=== PATIENT | female | born 1930 | race Caucasian/White ===

== ENCOUNTER → 2016-10-21 | Outpatient (CLI) | payer MEDICARE, OTHER ==
[2016-10-21 09:27] LABS: BASO # 0.1 x10^3/uL (0.0-0.2); BASO % 2 % (0-3); EOS # 0.2 x10^3/uL (0.0-0.7); EOS % 3 % (0-3); HEMOGLOBIN 11.2 g/dL (12.0-15.5); LYMPH % 15 % (24-48); MEAN CORPUSCULAR HEMOGLOBIN 34 pg (25-35); MEAN CORPUSCULAR HGB CONC 33 g/dL (31-37); MEAN CORPUSCULAR VOLUME 102 fL (79-100); MONO # 0.8 x10^3/uL (0.0-1.1); MONO % 12 % (0-9); NEUT # 4.3 x10^3uL (1.8-7.7); NEUT % 67 % (31-73); PLATELET COUNT 256 x10^3/uL (140-400); RED BLOOD COUNT 3.34 x10^6/uL (3.50-5.40); RED CELL DISTRIBUTION WIDTH 19.1 % (11.5-14.5); WHITE BLOOD COUNT 6.4 x10^3/uL (4.0-11.0)
== END | disposition home or self-care (01) ==
LOC: SPEC 09:08
PROVIDERS: ATTEND Internal Medicine Rheumatology
DX: I10 Essential (primary) hypertension (principal)
CPT/HCPCS: 36415; 85027

== ENCOUNTER → 2016-11-10 | Outpatient (CLI) | payer MEDICARE, OTHER ==
[2016-11-10 10:34] LABS: BASO % 1 % (0-3); EOS # 0.3 x10^3/uL (0.0-0.7); EOS % 5 % (0-3); HEMOGLOBIN 10.9 g/dL (12.0-15.5); LYMPH # 0.6 x10^3/uL (1.0-4.8); LYMPH % 9 % (24-48); MEAN CORPUSCULAR HEMOGLOBIN 34 pg (25-35); MEAN CORPUSCULAR HGB CONC 33 g/dL (31-37); MEAN CORPUSCULAR VOLUME 102 fL (79-100); MONO # 0.9 x10^3/uL (0.0-1.1); MONO % 13 % (0-9); NEUT # 4.9 x10^3uL (1.8-7.7); NEUT % 73 % (31-73); PLATELET COUNT 181 x10^3/uL (140-400); RED BLOOD COUNT 3.24 x10^6/uL (3.50-5.40); RED CELL DISTRIBUTION WIDTH 18.5 % (11.5-14.5); WHITE BLOOD COUNT 6.8 x10^3/uL (4.0-11.0)
[2016-11-10 10:36] LABS: BASO # 0.1 x10^3/uL (0.0-0.2)
[2016-11-10 10:44] LABS: ALBUMIN 3.6 g/dL (3.4-5.0); DIRECT BILIRUBIN 0.1 mg/dL (0.0-0.2); GFR 52.8; TOTAL BILIRUBIN 0.4 mg/dL (0.2-1.0); TOTAL PROTEIN 6.1 g/dL (6.4-8.2)
== END | disposition home or self-care (01) ==
LOC: SPEC 10:24
PROVIDERS: ATTEND Internal Medicine
DX: M19.90 Unspecified osteoarthritis, unspecified site (principal)
CPT/HCPCS: 36415; 80076; 82565; 85027

== ENCOUNTER 2017-03-09 11:08 | Inpatient (IN) | payer MEDICARE, OTHER ==
[~2017-03-09] VITALS: Ht 158.8 cm; Wt 51.7 kg
--- NOTE | 2017-03-09 12:23 | EKG ---
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
[2017-03-09 12:25] LABS: BASO # 0.1 x10^3/uL (0.0-0.2); BASO % 1 % (0-3); EOS # 0.1 x10^3/uL (0.0-0.7); EOS % 1 % (0-3); HEMATOCRIT 24.7 % (36.0-47.0); HEMOGLOBIN 8.3 g/dL (12.0-15.5); LYMPH # 0.7 x10^3/uL (1.0-4.8); LYMPH % 6 % (24-48); MEAN CORPUSCULAR HEMOGLOBIN 33 pg (25-35); MEAN CORPUSCULAR HGB CONC 34 g/dL (31-37); MEAN CORPUSCULAR VOLUME 97 fL (79-100); MONO # 0.7 x10^3/uL (0.0-1.1); MONO % 7 % (0-9); NEUT # 9.2 x10^3uL (1.8-7.7); NEUT % 86 % (31-73); PLATELET COUNT 260 x10^3/uL (140-400); RED BLOOD COUNT 2.56 x10^6/uL (3.50-5.40); RED CELL DISTRIBUTION WIDTH 17.1 % (11.5-14.5); WHITE BLOOD COUNT 10.7 x10^3/uL (4.0-11.0)
[2017-03-09] MEDS ORDERED: IV NORMAL SALINE 1,000ML 1,000 ML IV ONE (12:30)
--- NOTE | 2017-03-09 12:32 | RAD ---
AP portable chest radiograph 03/09/2017 Clinical History: Hypotension. An AP portable erect digital radiograph of the chest was obtained. Comparison study is dated 08/13/2015. The patient is status post right shoulder joint replacement. The cardiac silhouette is normal in size. The thoracic aorta is tortuous. Atherosclerotic calcification of the thoracic aorta is seen. No acute pulmonary infiltrate is noted. No pneumothorax or pleural effusion is seen. Degenerative changes are seen involving the thoracic spine and the left shoulder. Impression: No acute abnormality is seen.
[2017-03-09 12:34] LABS: ALBUMIN 2.2 g/dL (3.4-5.0); CALCIUM 8.1 mg/dL (8.5-10.1); CREATININE 0.8 mg/dL (0.6-1.0); DIRECT BILIRUBIN 0.1 mg/dL (0.0-0.2); GFR 68.3; POTASSIUM 4.7 mmol/L (3.5-5.1); TOTAL BILIRUBIN 0.3 mg/dL (0.2-1.0); TOTAL PROTEIN 5.6 g/dL (6.4-8.2)
[2017-03-09 13:48] LABS: BACTERIA,URINE MOD /HPF (0-FEW); BILIRUBIN,URINE NEG (NEG); CLARITY,URINE TURBID; COLOR,URINE YELLOW; GLUCOSE,URINE NEG (NEG); NITRITE,URINE POS (NEG); SQUAMOUS EPITHELIAL CELL,UR FEW /LPF; UROBILINOGEN,URINE 0.2 mg/dL (0.2 mg/dL); WBC,URINE >40 /HPF (0-4)
[2017-03-09] MEDS ORDERED: MORPHINE SULFATE 2 MG/ML DISP.SYRIN. IV PRN (14:00)
[2017-03-09] MEDS ORDERED: ONDANSETRON PF 4 MG/2 ML VIAL. IV PRN (14:00)
--- NOTE | 2017-03-09 14:30 | PHYS DOC ---
Past History Past Medical History: Arthritis, Asthma, Constipation, GERD, High Cholesterol, Hypertension Past Surgical History: No Surgical History Alcohol Use: None Drug Use: None Adult General Chief Complaint Chief Complaint: HYPOTENSION HPI HPI 46-year-old female presenting to the emergency department after being at a local care facility where they had a difficult time getting a blood pressure. EMS was called and the patient was brought in to us for further evaluation. This started today. She reports recently taking her medications for blood pressure. She denies any pain anywhere and reports feeling generally fatigued and malaised. Location generalized. Duration constant. No alleviating or exacerbating factors present. Review of systems is negative for chest pain shortness of breath fevers chills cough polyuria dysuria abdominal pain. All other review of systems is negative unless otherwise noted in history of present illness. ED course: 86-year-old female presenting to the emergency department with low blood pressure. Upon arrival the patient's blood pressure was soft and 100 systolic. We initiated IV fluid administration obtain an EKG sent blood work and obtained a chest x-ray. Chest x-ray unremarkable. EKG obtained. EKG shows sinus rhythm with regular rate. Normal intervals. Leftward axis. ST segments are congruent. Not suggestive of ACS. Reviewed by myself. Patient responded IV fluid administration. Urinalysis positive for urinary tract infection. Also the patient's hemoglobin is dropped 2 points. We will send fecal occult testing though she does not remember having dark stools and denies any blood in her stool. I discussed the case with Dr. Cuba for admission. The patient was admitted for further evaluation workup and care. Review of Systems Review of Systems SEE ABOVE Current Medications Current Medications Current Medications Medications (Trade) Dose Ordered Sig/Santo Start Time Stop Time Status Last Admin Dose Admin Levofloxacin/ Dextrose 100 ml @ 100 mls/hr 1X ONCE 03/09/17 14:10 03/09/17 15:09 Morphine Sulfate (Morphine 2mg Syringe) 2 mg PRN Q2HR PRN 03/09/17 14:00 03/10/17 13:59 Ondansetron HCl (Zofran) 4 mg PRN Q4HRS PRN 03/09/17 14:00 03/10/17 13:59 Sodium Chloride 1,000 ml @ 1,000 mls/hr 1X ONCE 03/09/17 12:30 03/09/17 13:29 DC Allergies Allergies Allergies Coded Allergies Type Severity Reaction Last Updated Verified Penicillins Allergy Unknown 03/09/17 Yes Sulfa (Sulfonamide Antibiotics) Allergy Unknown 03/09/17 Yes amoxicillin Allergy Unknown 03/09/17 Yes aspirin Allergy Unknown 03/09/17 Yes chocolate flavor Allergy Unknown 03/09/17 Yes clavulanic acid Allergy Unknown 03/09/17 Yes mushroom Allergy Unknown 03/09/17 Yes strawberry Allergy Unknown 03/09/17 Yes Uncoded Allergies Type Severity Reaction Last Updated Verified other Allergy Unknown 03/09/17 Physical Exam Physical Exam Constitutional: Well developed, well nourished, no acute distress, non-toxic appearance. [] HENT: Normocephalic, atraumatic, bilateral external ears normal, oropharynx moist, no oral exudates, nose normal. [] Eyes: PERRLA, EOMI, conjunctiva normal, no discharge. [] Neck: Normal range of motion, no tenderness, supple, no stridor. [] Cardiovascular:Heart rate regular rhythm, no murmur [] Lungs & Thorax: Bilateral breath sounds clear to auscultation [] Abdomen: Soft nontender abdomen without rebound tenderness or guarding present. Negative McBurneys point. Negative Rodrigues sign. No ecchymosis present. Skin: Warm, dry, no erythema, no rash. [] Back: No tenderness, no CVA tenderness. [] Extremities: No tenderness, no cyanosis, no clubbing, ROM intact, no edema. [] Neurologic: Mental status: Awake oriented and alert x3 Cranial nerves: Extraocular movements intact, eyebrows shantelle bilaterally smile symmetric, uvula elevation, shoulder shrug intact, tongue protrusion normal DTRs: 2+ Sensation: equal and normal in all extremities Strength: 5/5 in upper and lower extremities bilaterally Psychologic: Affect normal, judgement normal, mood normal. [] Current Patient Data Vital Signs Vital Signs Date Time Temp Pulse Resp B/P (MAP) Pulse Ox O2 Delivery O2 Flow Rate FiO2 03/09/17 12:19 64 20 113/54 (73) 95 Room Air 03/09/17 11:08 98.1 Lab Results Laboratory Tests Test 03/09/17 12:05 03/09/17 13:20 White Blood Count 10.7 x10^3/uL (4.0-11.0) Red Blood Count 2.56 x10^6/uL (3.50-5.40) L Hemoglobin 8.3 g/dL (12.0-15.5) L Hematocrit 24.7 % (36.0-47.0) L Mean Corpuscular Volume 97 fL (79-100) Mean Corpuscular Hemoglobin 33 pg (25-35) Mean Corpuscular Hemoglobin Concent 34 g/dL (31-37) Red Cell Distribution Width 17.1 % (11.5-14.5) H Platelet Count 260 x10^3/uL (140-400) Neutrophils (%) (Auto) 86 % (31-73) H Lymphocytes (%) (Auto) 6 % (24-48) L Monocytes (%) (Auto) 7 % (0-9) Eosinophils (%) (Auto) 1 % (0-3) Basophils (%) (Auto) 1 % (0-3) Neutrophils # (Auto) 9.2 x10^3uL (1.8-7.7) H Lymphocytes # (Auto) 0.7 x10^3/uL (1.0-4.8) L Monocytes # (Auto) 0.7 x10^3/uL (0.0-1.1) Eosinophils # (Auto) 0.1 x10^3/uL (0.0-0.7) Basophils # (Auto) 0.1 x10^3/uL (0.0-0.2) Sodium Level 131 mmol/L (136-145) L Potassium Level 4.7 mmol/L (3.5-5.1) Chloride Level 100 mmol/L (98-107) Carbon Dioxide Level 26 mmol/L (21-32) Anion Gap 5 (6-14) L Blood Urea Nitrogen 26 mg/dL (7-20) H Creatinine 0.8 mg/dL (0.6-1.0) Estimated GFR (Cockcroft-Gault) 68.3 Glucose Level 99 mg/dL (70-99) Lactic Acid Level 1.8 mmol/L (0.4-2.0) Calcium Level 8.1 mg/dL (8.5-10.1) L Total Bilirubin 0.3 mg/dL (0.2-1.0) Direct Bilirubin 0.1 mg/dL (0.0-0.2) Aspartate Amino Transferase (AST) 21 U/L (15-37) Alanine Aminotransferase (ALT) 16 U/L (14-59) Alkaline Phosphatase 102 U/L (46-116) Troponin I Quantitative < 0.017 ng/mL (0-0.055) Total Protein 5.6 g/dL (6.4-8.2) L Albumin 2.2 g/dL (3.4-5.0) L Lipase 228 U/L (73-393) Urine Collection Type Void Urine Color Yellow Urine Clarity Turbid Urine pH 6.5 Urine Specific [place] 1.010 Urine Protein Neg (NEG-TRACE) Urine Glucose (UA) Neg mg/dL (NEG) Urine Ketones (Stick) Neg mg/dL (NEG) Urine Blood Small (NEG) Urine Nitrite Pos (NEG) Urine Bilirubin Neg (NEG) Urine Urobilinogen Dipstick 0.2 mg/dL (0.2 mg/dL) Urine Leukocyte Esterase Large (NEG) Urine RBC 11-20 /HPF (0-2) Urine WBC >40 /HPF (0-4) Urine Squamous Epithelial Cells Few /LPF Urine Transitional Epithelial Cells Occ /LPF Urine Bacteria Mod /HPF (0-FEW) EKG EKG [] Radiology/Procedures Radiology/Procedures [] Course & Med Decision Making Course & Med Decision Making Pertinent Labs and Imaging studies reviewed. (See chart for details) [] Dragon Disclaimer Dragon Disclaimer This chart was dictated in whole or in part using Voice Recognition software in a busy, high-work load, and often noisy Emergency Department environment. It may contain unintended and wholly unrecognized errors or omissions. Departure Departure: Impression: Primary Impression: Hypotension Additional Impressions: Urinary tract infection Anemia Uremia Dehydration Disposition: 09 ADMITTED INPATIENT Admitting Physician: Marcie Cuba Condition: STABLE Referrals: CYNTHIA POND MD (PCP) Problem Qualifiers DAJUAN RODRIGUES MD Mar 09, 2017 14:30
[2017-03-09 16:06] VITALS: BP 128/65
[2017-03-09 18:02] VITALS: BP 118/74
[2017-03-09] MEDS ORDERED: LATA2.5D3 EACHEYE (18:26)
[2017-03-09] MEDS: IV NORMAL SALINE 1,000ML 1,000 ML IV SCH (19:00)
[2017-03-09] MEDS: PANTOPRAZOLE 40 MG TABLET. PO SCH (19:30)
[2017-03-09] MEDS ORDERED: CARV25TA2 PO (19:54)
[2017-03-09] MEDS ORDERED: PRED2.5T PO (19:54)
[2017-03-09] MEDS ORDERED: DEXT15DR5 EACHEYE (19:54)
[2017-03-09] MEDS ORDERED: CETI10TA22 PO (19:54)
[2017-03-09] MEDS ORDERED: ETAN50DI2 SQ (19:54)
[2017-03-09] MEDS ORDERED: CARB25DR OP (19:54)
[2017-03-09] MEDS ORDERED: METH2.5T PO (19:54)
[2017-03-09] MEDS ORDERED: GABA600T2 PO (19:54)
[2017-03-09] MEDS ORDERED: VALS160T3 PO (19:54)
[2017-03-09] MEDS ORDERED: FOLI1TAB16 PO (19:54)
[2017-03-09] MEDS ORDERED: CICL6.1H4 IH (19:54)
[2017-03-09] MEDS ORDERED: ASPI81TA50 PO (19:54)
[2017-03-09] MEDS ORDERED: ACET325T9 PO (19:54)
[2017-03-09] MEDS ORDERED: FLUT16SP21 NS (19:54)
[2017-03-09] MEDS ORDERED: CYCL1DRO EACHEYE (19:54)
[2017-03-09] MEDS ORDERED: CARB15DR58 OT (19:54)
[2017-03-09] MEDS ORDERED: POLY17PO5 PO (19:54)
[2017-03-09] MEDS ORDERED: CELE100C PO (19:54)
[2017-03-09] MEDS ORDERED: ALBU8.5H8 INH (19:54)
[2017-03-09] MEDS ORDERED: IPRA12.9 IH (19:54)
[2017-03-09] MEDS ORDERED: VIT1CAPS17 PO (19:54)
[2017-03-09] MEDS ORDERED: BRIM5DRO3 EACHEYE (19:54)
[2017-03-09] MEDS ORDERED: ACETAMINOPHEN 325 MG TABLET PO PRN (20:45)
[2017-03-09] MEDS ORDERED: ENOXAPARIN 30 MG/0.3 ML DISP.SYRIN. SQ SCH (20:45)
[2017-03-09] MEDS ORDERED: CARBOXYMETHYLCELLULOSE OP SCH (20:45)
[2017-03-09] MEDS ORDERED: HYPROMELLOSE OP SCH (20:45)
[2017-03-09] MEDS ORDERED: ALBUTEROL SULFATE 8GM INHALER. INH PRN (20:45)
[2017-03-09] MEDS ORDERED: FLUTICASONE 50MCG/NASAL SPRAY 16GM BOTTLE. NS PRN (20:45)
[2017-03-09] MEDS: LATANOPROST 0.005% OPHTH SOLUTION 2.5ML BOTTLE. OU SCH (21:00)
[2017-03-09] MEDS ORDERED: METHOTREXATE SODIUM 2.5 MG TABLET PO SCH (21:00)
[2017-03-09] MEDS: BRIMONIDINE 0.2% OPHTH SOLUTION 5ML BOTTLE. OU SCH (21:00)
[2017-03-09] MEDS ORDERED: IPRATROPIUM BROMIDE 17MCG/PUFF 12.9GM INHALER. IH SCH (21:00)
[2017-03-09] MEDS: NON FORMULARY ITEM (Ciclesonide (Alvesco) 6.1 GM) IH SCH (21:00)
[2017-03-09] MEDS: cycloSPORINE 0.05% OPTH 1 DROP DROPERETTE OU SCH (21:00)
[2017-03-09] MEDS: CETIRIZINE HCL 10 MG TABLET PO SCH (21:21)
[2017-03-09] MEDS: GABAPENTIN 300 MG CAPSULE. PO SCH (21:21)
[2017-03-09] MEDS: CELECOXIB 100 MG CAPSULE PO SCH (21:22)
[2017-03-09] MEDS ORDERED: ALBUTEROL SULFATE 2.5 MG/3 ML NEBU. NEB PRN (21:30)
[2017-03-09] MEDS: HYDROcodone/APAP 7.5/325MG 1 TAB TABLET PO PRN (23:00)
--- NOTE | 2017-03-10 02:12 | ACF ---
Admission Criteria Forms URINARY COMPLICATIONS Clinical Indications for Inpatient Care (Place 'X' for any and all applicable criteria): Ongoing inpatient care may be indicated for urinary complications with ANY ONE of the following: [x]I. Urinary tract infection requiring inpatient care as indicated by ANY ONE of the following(8)(19)(20): [ ]a) Severe symptoms (eg, high fever, severe pain) [ ]b) Vomiting or dehydration requiring ongoing inpatient care [x]c) IV antibiotic needs that cannot be managed at lower level of care [x]d) Hemodynamic instability [ ]e) Obstruction of collecting system by stone or tumor [ ]II. Urinary retention requiring drainage or surgery (3)(4)(5)(17)(18) [ ]III. Renal failure (Use Renal Failure Criteria for further information.) [ ]IV. Oliguria(30) [ ]V. Post obstructive diuresis requiring close monitoring of urine output and intravenous compensation for excessive fluid losses(33) Extended stay beyond goal length of stay for primary condition may be needed until ALL of the following are present(3)(4)(5)(8): [ ]a) Renal function (creatinine) at baseline, or daily decreases in creatinine consistent with renal function return [ ]b) Voiding adequately or with urinary catheter or percutaneous suprapubic tube and management regimen in place that is performable at lower level of care. [ ]c) Urine output adequate [ ]d) Fever absent or resolving [ ]e) Infection absent or treatable at next level of care The original [employer] content created by [employer] has been revised. The portions of the content which have been revised are identified through the use of italic text or in bold, and [employer] has neither reviewed nor approved the modified material. All other unmodified content is copyright [employer] Please see references footnoted in the original [employer] edition 2016 SINDHU ALDANA Mar 10, 2017 02:12
[2017-03-10] MEDS: IV NORMAL SALINE 1,000ML 1,000 ML IV SCH ×2 (05:17→13:29)
[2017-03-10 05:50] VITALS: BP 120/54
[2017-03-10 06:42] LABS: BASO # 0.1 x10^3/uL (0.0-0.2); BASO % 1 % (0-3); EOS # 0.1 x10^3/uL (0.0-0.7); EOS % 1 % (0-3); HEMATOCRIT 23.6 % (36.0-47.0); HEMOGLOBIN 7.8 g/dL (12.0-15.5); LYMPH % 14 % (24-48); MEAN CORPUSCULAR HEMOGLOBIN 32 pg (25-35); MEAN CORPUSCULAR HGB CONC 33 g/dL (31-37); MEAN CORPUSCULAR VOLUME 97 fL (79-100); MONO # 0.4 x10^3/uL (0.0-1.1); MONO % 6 % (0-9); NEUT # 5.9 x10^3uL (1.8-7.7); NEUT % 79 % (31-73); PLATELET COUNT 273 x10^3/uL (140-400); RED BLOOD COUNT 2.44 x10^6/uL (3.50-5.40); RED CELL DISTRIBUTION WIDTH 16.8 % (11.5-14.5); WHITE BLOOD COUNT 7.5 x10^3/uL (4.0-11.0)
[2017-03-10 06:45] LABS: ALBUMIN 2.2 g/dL (3.4-5.0); ALBUMIN/GLOBULIN RATIO 0.7 (1.0-1.7); CALCIUM 7.8 mg/dL (8.5-10.1); CREATININE 0.7 mg/dL (0.6-1.0); GFR 79.7; MAGNESIUM 1.9 mg/dL (1.8-2.4); TOTAL BILIRUBIN 0.3 mg/dL (0.2-1.0); TOTAL PROTEIN 5.4 g/dL (6.4-8.2)
[2017-03-10 06:59] LABS: POTASSIUM 4.4 mmol/L (3.5-5.1)
[2017-03-10] MEDS ORDERED: NON FORMULARY ITEM (Etanercept (Enbrel) 50 MG) SQ SCH (08:00)
[2017-03-10] MEDS: IPRATROPIUM BROMIDE 0.5 MG/2.5 ML NEBU. NEB SCH ×4 (08:00→20:00)
[2017-03-10] MEDS: FOLIC ACID 1 MG TABLET PO SCH (08:24)
[2017-03-10] MEDS: PANTOPRAZOLE 40 MG TABLET. PO SCH (08:24)
[2017-03-10] MEDS: predniSONE 5 MG TABLET PO SCH (08:24)
[2017-03-10] MEDS: CELECOXIB 100 MG CAPSULE PO SCH (08:24)
[2017-03-10] MEDS: BRIMONIDINE 0.2% OPHTH SOLUTION 5ML BOTTLE. OU SCH ×2 (08:24→20:16)
[2017-03-10] MEDS: ASPIRIN ENTERIC COATED 81 MG TABLET.DR. PO SCH (08:24)
[2017-03-10] MEDS: cycloSPORINE 0.05% OPTH 1 DROP DROPERETTE OU SCH ×2 (08:25→20:19)
[2017-03-10] MEDS: POLYVINYL ALCOHOL 1.4% OPHTH SOLUTION 15ML BOTTLE. OU PRN (08:25)
[2017-03-10] MEDS: POLYETHYLENE GLYCOL 3350 17 GM PACKET. PO SCH (08:25)
[2017-03-10] MEDS: NON FORMULARY ITEM (Ciclesonide (Alvesco) 6.1 GM) IH SCH (08:26)
[2017-03-10] MEDS: FLUTICASONE 50MCG/NASAL SPRAY 16GM BOTTLE. NS SCH ×2 (09:00→20:15)
--- NOTE | 2017-03-10 09:10 | HP ---
ADMIT DATE: 03/09/2017 REASON FOR ADMISSION: Hypotension, anemia. HISTORY OF PRESENT ILLNESS: This is an 86-year-old [employer] who noticed over the last several days low blood pressures and "almost blacking out." She had been on medication to [place] and fallen and hurt her right shoulder with possibly hardware in her shoulder out of place. PAST MEDICAL HISTORY: Ankylosing spondylitis, hyperlipidemia, hypertension, clavicle fracture, GERD, chronic bronchitis, allergic rhinitis, macular degeneration, osteoporosis, rheumatoid arthritis, conductive hearing loss, chronic pain, chronic use of narcotics, dry eyes and constipation, which has been ongoing. ALLERGIES: PENICILLIN, SULFA, AMOXICILLIN, ASPIRIN, CHOCOLATE FLAVOR, CLAVULANIC ACID. MEDICATIONS: Reviewed and are available on the MAR. Noted she is on aspirin, prednisone, methotrexate. FAMILY HISTORY: Brother 8 years ago of lung cancer, was a heavy smoker. Sister is alive at 73, father had colon cancer, in her 80s. Father of massive heart attack in his 80s. REVIEW OF SYSTEMS: Pertinent for generalized fatigue, weight loss of about 14 pounds, lack of appetite, falling. Denies dizziness. Denies sore throat. Denies fever, chills, sweats, chest pain, shortness of breath. PHYSICAL EXAMINATION: VITAL SIGNS: Blood pressure 120/54, pulse 77, respirations 18, temperature 98.1, pulse ox 99% on room air. Height 62.5 inches, weight 111.44 pounds. GENERAL: Frail elderly female in no acute distress. She is alert and oriented x 3, answers questions appropriately. HEENT: Hearing is normal. Tongue is moist. NECK: Supple. LUNGS: Clear. CARDIOVASCULAR: Regular rhythm and rate. ABDOMEN: Soft, nontender. EXTREMITIES: Without edema. SKIN: The patient has multiple bruises from fall. A large hematoma in the right breast, smaller on the right damon and some on her arms. The feet have very bad bunions and deformities, deviation of the great toe to medial aspect of both feet. LABORATORY DATA: Sodium 134, normal kidney function, albumin is 2.2. Urinalysis is large leukocyte esterase, nitrite positive, 11-20 red cells, small amount of blood. Hemoglobin 7.8, hematocrit 23.6. Other iron studies and B12 pending. ASSESSMENT: 1. Hypotension, holding blood pressure medicines. 2. New onset anemia, mostly suspicious for blood loss anemia. 3. Hematuria. 4. Rheumatoid arthritis. 5. Urinary tract infection. 6. Status post fall with multiple small hematomas. PLAN: Await other studies, treat her UTI, hold her aspirin and she is getting Protonix now and we will get a stool Hemoccult. CHUCHO YEN DO DR: ROSS/marc JOB#: [id number] / [id number]
[2017-03-10 11:29] VITALS: BP 82/56
[2017-03-10 11:39] VITALS: BP 96/57
[2017-03-10 12:02] LABS: FECAL OB PT NEGATIVE (NEG)
[2017-03-10] MEDS: MVI, ADULT NO.4 WITH VIT K 10 ML, FOLIC ACID 1 MG, THIAMINE 100 MG in IV DEXTROSE 5 %-0... IV SCH ×4 (14:52)
[2017-03-10] MEDS ORDERED: IOHEXOL 300 MG/ML 75 ML VIAL. IV ONE (15:15)
[2017-03-10] MEDS ORDERED: IOHEXOL 240 MG/ML 50ML VIAL. PO ONE (15:15)
[2017-03-10 15:41] VITALS: BP 119/82
--- NOTE | 2017-03-10 17:23 | RAD ---
Indication: Anemia and weight loss. Axial imaging through the abdomen and pelvis was performed after the administration of intravenous contrast. One or more of the following individualized dose reduction techniques were utilized for this examination: 1. Automated exposure control 2. Adjustment of the mA and/or kV according to patient size 3. Use of iterative reconstruction technique No prior studies are available for comparison. The lung bases are clear. The liver and gallbladder are unremarkable. The pancreas and spleen are unremarkable. No adrenal mass is detected. Cortical low densities are identified within both kidneys, likely cysts. The aorta is nonaneurysmal. There is a large amount of stool throughout the colon consistent with constipation. The small bowel loops are normal caliber. No obstruction is seen. There is no ascites. Bladder is unremarkable. There is a calcified mass in the midline of the pelvis, likely a large calcified uterine fibroid. IMPRESSION: 1. Constipation. 2. Renal cysts and calcified uterine fibroid. No other significant abnormality is detected. Electronically signed by: Alvino Henriquez MD (03/10/2017 5:20 PM) [facility]
[2017-03-10] MEDS ORDERED: BISACODYL 10 MG SUPP.RECT PR PRN (18:00)
[2017-03-10 19:24] VITALS: BP 90/52
[2017-03-10] MEDS: LATANOPROST 0.005% OPHTH SOLUTION 2.5ML BOTTLE. OU SCH (20:16)
[2017-03-10] MEDS: GABAPENTIN 300 MG CAPSULE. PO SCH (20:18)
[2017-03-10] MEDS: CETIRIZINE HCL 10 MG TABLET PO SCH (20:18)
[2017-03-10] MEDS ORDERED: BISACODYL 10 MG SUPP.RECT PR ONE (21:00)
[2017-03-10] MEDS: HYDROcodone/APAP 7.5/325MG 1 TAB TABLET PO PRN (21:10)
[2017-03-10 23:21] VITALS: BP 110/64
[2017-03-11] MEDS: IV NORMAL SALINE 1,000ML 1,000 ML IV SCH ×3 (01:00→21:00)
[2017-03-11] MEDS: IPRATROPIUM BROMIDE 0.5 MG/2.5 ML NEBU. NEB SCH ×4 (04:42→20:51)
[2017-03-11 05:39] VITALS: BP 140/67
[2017-03-11 06:56] LABS: BASO # 0.1 x10^3/uL (0.0-0.2); BASO % 1 % (0-3); EOS # 0.1 x10^3/uL (0.0-0.7); EOS % 2 % (0-3); HEMATOCRIT 21.8 % (36.0-47.0); HEMOGLOBIN 7.3 g/dL (12.0-15.5); LYMPH # 1.1 x10^3/uL (1.0-4.8); LYMPH % 18 % (24-48); MEAN CORPUSCULAR HEMOGLOBIN 33 pg (25-35); MEAN CORPUSCULAR HGB CONC 33 g/dL (31-37); MEAN CORPUSCULAR VOLUME 98 fL (79-100); MONO # 0.3 x10^3/uL (0.0-1.1); MONO % 6 % (0-9); NEUT # 4.6 x10^3uL (1.8-7.7); NEUT % 73 % (31-73); PLATELET COUNT 258 x10^3/uL (140-400); RED BLOOD COUNT 2.24 x10^6/uL (3.50-5.40); RED CELL DISTRIBUTION WIDTH 17.3 % (11.5-14.5); WHITE BLOOD COUNT 6.3 x10^3/uL (4.0-11.0)
[2017-03-11 07:04] LABS: ALBUMIN 2.2 g/dL (3.4-5.0); ALBUMIN/GLOBULIN RATIO 0.7 (1.0-1.7); CALCIUM 7.9 mg/dL (8.5-10.1); CREATININE 0.8 mg/dL (0.6-1.0); GFR 68.3; POTASSIUM 3.9 mmol/L (3.5-5.1); TOTAL BILIRUBIN 0.3 mg/dL (0.2-1.0); TOTAL PROTEIN 5.4 g/dL (6.4-8.2)
[2017-03-11] MEDS: PANTOPRAZOLE 40 MG TABLET. PO SCH (07:48)
[2017-03-11] MEDS: FLUTICASONE 50MCG/NASAL SPRAY 16GM BOTTLE. NS SCH ×2 (08:35→15:00)
[2017-03-11] MEDS: POLYETHYLENE GLYCOL 3350 17 GM PACKET. PO SCH (08:35)
[2017-03-11] MEDS: FOLIC ACID 1 MG TABLET PO SCH (08:36)
[2017-03-11] MEDS: predniSONE 5 MG TABLET PO SCH (08:36)
[2017-03-11] MEDS: cycloSPORINE 0.05% OPTH 1 DROP DROPERETTE OU SCH ×2 (08:36→21:01)
[2017-03-11] MEDS: ASPIRIN ENTERIC COATED 81 MG TABLET.DR. PO SCH (08:36)
[2017-03-11] MEDS: POLYVINYL ALCOHOL 1.4% OPHTH SOLUTION 15ML BOTTLE. OU PRN (08:37)
[2017-03-11] MEDS: BRIMONIDINE 0.2% OPHTH SOLUTION 5ML BOTTLE. OU SCH ×2 (08:39→21:02)
[2017-03-11] MEDS: MVI, ADULT NO.4 WITH VIT K 10 ML, FOLIC ACID 1 MG, THIAMINE 100 MG in IV DEXTROSE 5 %-0... IV SCH ×4 (09:00)
[2017-03-11] MEDS ORDERED: IV NORMAL SALINE 500ML 0 ML ONE (10:39)
[2017-03-11] MEDS ORDERED: IV NORMAL SALINE 500ML 500 ML IV ONE (10:45)
[2017-03-11 11:00] VITALS: BP 69/39
[2017-03-11] MEDS ORDERED: POLYVINYL ALCOHOL 1.4% OPHTH SOLUTION 15ML BOTTLE. OU PRN (15:00)
[2017-03-11 15:15] VITALS: BP 116/62
--- NOTE | 2017-03-11 18:17 | PDOC ---
PROGRESS NOTES Assessment 1. Hypotension: Likely due to dehydration and anemia. Bp responded very well to a fluid bolus. I have d/c'd the opioids that could make this worse. I will d/c her continuous IVF as well, in case that is driving down her Hgb. We will check Hgb again in AM. JUWAN was heme neg yesterday, and there have been no bloody stools. If pt has significant BP drop overnight we will see if transfusion is warranted at that point. 2. Anemia: Possibly due to medications like MTX, Enbrel, Celebrex. No evidence of blood loss, but cannot completely rule that out either. Unfortunately, pt has tried to stop each of these meds in the past and was miserable. Since she does not have pancytopenia, I am going to leave things the way they are for now. 3. RA: Severe, pt has severe deformities. Continue home meds. 4. Dehydration: Resolved. Monitor renal function. 5. DVT proph: SCD's only, no anticoagulation due to low Hgb and risk of bleeding. 6. UTI : Final culture pending, pt currently on Levaquin. Problems: Plan of Care: see other orders Subjective Pt states she feels ok. Denies abd pain, TRISTAN, chest pain, SOA, fever, vomiting, or blood in stool. She has had a stool since admission and says it was normal. Pain adequately controlled. Reports she had a colonoscopy about 7-8 years ago and it was normal. Says they did an EGD at that time and it was ok as well. Objective Vital Signs Date Time Temp Pulse Resp B/P (MAP) Pulse Ox O2 Delivery O2 Flow Rate FiO2 03/11/17 16:31 96 Room Air 03/11/17 15:15 98.2 78 116/62 (80) 03/11/17 05:39 18 03/10/17 05:50 99.0 Intake and Output 03/11/17 07:00 Intake Total 2354 ml Output Total 2100 ml Balance 254 ml Intake Oral 1500 ml IV Total 854 ml Output Urine Total 2100 ml # Voids 1 # Bowel Movements 2 Abdomen: Normal bowel sounds, Soft, No tenderness, No masses Heart: Regular rate, Normal S1, Normal S2, No murmurs Extremities: No edema, Normal pulses, No tenderness/swelling General: Alert, Oriented X3, Cooperative, No acute distress HEENT: Atraumatic, PERRLA, EOMI, Mucous membr. moist/pink Lungs: Clear to auscultation, Normal air movement Neck: No JVD, No LAD Neuro: Normal speech, Normal tone, Cranial nerves 3-12 NL Psych/Mental Status: Mental status NL, Mood NL Skin: No rashes Review of Relevant I have reviewed the following items kevyn (where applicable) has been applied. Labs Laboratory Tests Test 03/10/17 05:55 03/10/17 11:44 03/11/17 06:30 03/11/17 11:26 White Blood Count 7.5 x10^3/uL (4.0-11.0) 6.3 x10^3/uL (4.0-11.0) Red Blood Count 2.44 x10^6/uL (3.50-5.40) 2.24 x10^6/uL (3.50-5.40) Hemoglobin 7.8 g/dL (12.0-15.5) 7.3 g/dL (12.0-15.5) 7.1 g/dL (12.0-15.5) Hematocrit 23.6 % (36.0-47.0) 21.8 % (36.0-47.0) Mean Corpuscular Volume 97 fL (79-100) 98 fL (79-100) Mean Corpuscular Hemoglobin 32 pg (25-35) 33 pg (25-35) Mean Corpuscular Hemoglobin Concent 33 g/dL (31-37) 33 g/dL (31-37) Red Cell Distribution Width 16.8 % (11.5-14.5) 17.3 % (11.5-14.5) Platelet Count 273 x10^3/uL (140-400) 258 x10^3/uL (140-400) Neutrophils (%) (Auto) 79 % (31-73) 73 % (31-73) Lymphocytes (%) (Auto) 14 % (24-48) 18 % (24-48) Monocytes (%) (Auto) 6 % (0-9) 6 % (0-9) Eosinophils (%) (Auto) 1 % (0-3) 2 % (0-3) Basophils (%) (Auto) 1 % (0-3) 1 % (0-3) Neutrophils # (Auto) 5.9 x10^3uL (1.8-7.7) 4.6 x10^3uL (1.8-7.7) Lymphocytes # (Auto) 1.0 x10^3/uL (1.0-4.8) 1.1 x10^3/uL (1.0-4.8) Monocytes # (Auto) 0.4 x10^3/uL (0.0-1.1) 0.3 x10^3/uL (0.0-1.1) Eosinophils # (Auto) 0.1 x10^3/uL (0.0-0.7) 0.1 x10^3/uL (0.0-0.7) Basophils # (Auto) 0.1 x10^3/uL (0.0-0.2) 0.1 x10^3/uL (0.0-0.2) Sodium Level 134 mmol/L (136-145) 136 mmol/L (136-145) Potassium Level 4.4 mmol/L (3.5-5.1) 3.9 mmol/L (3.5-5.1) Chloride Level 103 mmol/L (98-107) 106 mmol/L (98-107) Carbon Dioxide Level 26 mmol/L (21-32) 23 mmol/L (21-32) Anion Gap 5 (6-14) 7 (6-14) Blood Urea Nitrogen 18 mg/dL (7-20) 16 mg/dL (7-20) Creatinine 0.7 mg/dL (0.6-1.0) 0.8 mg/dL (0.6-1.0) Estimated GFR (Cockcroft-Gault) 79.7 68.3 BUN/Creatinine Ratio 26 (6-20) 20 (6-20) Glucose Level 84 mg/dL (70-99) 105 mg/dL (70-99) Calcium Level 7.8 mg/dL (8.5-10.1) 7.9 mg/dL (8.5-10.1) Magnesium Level 1.9 mg/dL (1.8-2.4) 2.0 mg/dL (1.8-2.4) Total Bilirubin 0.3 mg/dL (0.2-1.0) 0.3 mg/dL (0.2-1.0) Aspartate Amino Transf (AST/SGOT) 21 U/L (15-37) 18 U/L (15-37) Alanine Aminotransferase (ALT/SGPT) 17 U/L (14-59) 17 U/L (14-59) Alkaline Phosphatase 93 U/L (46-116) 94 U/L (46-116) Total Protein 5.4 g/dL (6.4-8.2) 5.4 g/dL (6.4-8.2) Albumin 2.2 g/dL (3.4-5.0) 2.2 g/dL (3.4-5.0) Albumin/Globulin Ratio 0.7 (1.0-1.7) 0.7 (1.0-1.7) Stool Occult Blood Negative (NEG) Microbiology 03/09/17 Urine Culture - Final, Complete 03/09/17 Urine Culture Result 1 (MERCEDES) - Final, Complete 03/09/17 Antimicrobic Susceptibility - Final, Complete Medications Current Medications Sodium Chloride 1,000 ml @ 1,000 mls/hr 1X ONCE IV ; Start 03/09/17 at 12:30; Stop 03/09/17 at 13:29; Status DC Levofloxacin/ Dextrose 100 ml @ 100 mls/hr 1X ONCE IV Last administered on 14:10; Start 03/09/17 at 14:10; Stop 03/09/17 at 15:09; Status DC Ondansetron HCl (Zofran) 4 mg PRN Q4HRS PRN IV NAUSEA/VOMITING; Start 03/09/17 at 14:00; Stop 03/10/17 at 13:59; Status DC Morphine Sulfate (Morphine 2mg Syringe) 2 mg PRN Q2HR PRN IV PAIN; Start at 14:00; Stop 03/09/17 at 19:18; Status DC Sodium Chloride 1,000 ml @ 100 mls/hr Q10H IV Last administered on 03/11/17t 16:19; Start 03/09/17 at 19:00 Levofloxacin/ Dextrose 100 ml @ 100 mls/hr Q24H IV ; Start 03/10/17 at 15:00; Stop 03/10/17 at 15:00; Status DC Levofloxacin/ Dextrose 50 ml @ 50 mls/hr Q24H IV Last administered on 16:17; Start 03/10/17 at 15:00 Pantoprazole Sodium (Protonix) 40 mg DAILYAC PO Last administered on 03/11/17 07:48; Start 03/09/17 at 19:30 Enoxaparin Sodium (Lovenox) 30 mg Q24H SQ Last administered on 03/09/17 20:45 ; Start 03/09/17 at 20:45; Stop 03/10/17 at 07:10; Status DC Acetaminophen (Tylenol) 650 mg PRN Q6HRS PRN PO PAIN/FEVER; Start 03/09/17 at 20:45 Albuterol Sulfate (Ventolin Hfa) 1 puff PRN DAILY PRN INH SHORTNESS OF BREATH; Start 03/09/17 at 20:45; Stop 03/09/17 at 21:33; Status DC Aspirin (Aspirin Enteric Coated) 81 mg DAILY PO Last administered on 03/11/17 08:36; Start 03/10/17 at 09:00 Celecoxib (CeleBREX) 100 mg BID PO Last administered on 03/10/17 08:24; Start 03/09/17 at 21:00; Stop 03/10/17 at 12:16; Status DC Cetirizine HCl (ZyrTEC) 10 mg HS PO Last administered on 03/10/17 20:18; Start 03/09/17 at 21:00 Cyclosporine (Restasis) 1 drop BID OU Last administered on 03/11/17 08:36; Start 03/09/17 at 21:00 Fluticasone Propionate (Flonase) 1 spray PRN Q6HRS PRN [place] ALLERGIES Last administered on 03/10/17 08:24; Start 03/09/17 at 20:45; Stop 03/10/17 at 08:44 ; Status DC Folic Acid (Folic Acid) 1 mg DAILY PO Last administered on 03/11/17 08:36; Start 03/10/17 at 09:00 Ipratropium [place] (Atrovent Hfa) 2 puff QID IH ; Start 03/09/17 at 21:00; Stop 03/09/17 at 21:33; Status DC Latanoprost (Xalatan) 1 drop HS OU Last administered on 03/10/17 20:16; Start 03/09/17 at 21:00 Polyethylene Glycol (miraLAX) 17 gm DAILY PO Last administered on 03/11/17 08: 35; Start 03/10/17 at 09:00 Brimonidine Tartrate (Alphagan) 1 drop BID OU Last administered on 03/11/17 08 :39; Start 03/09/17 at 21:00; Stop 03/11/17 at 15:00; Status DC Non-Formulary Medication 25 ml PRN OP ; Start 03/09/17 at 20:45; Stop 03/09/17 at 21:31; Status DC Non-Formulary Medication 6.1 gm Q12HR IH ; Start 03/09/17 at 21:00; Stop at 08:45; Status DC Artificial Tears (Artificial Tears) 1 drop PRN QID PRN OU DRY EYE Last administered on 03/11/17 08:37; Start 03/09/17 at 21:15; Stop 03/11/17 at 15:00 ; Status DC Non-Formulary Medication 50 mg DAILY08 SQ ; Start 03/10/17 at 08:00; Stop at 13:05; Status DC Gabapentin (Neurontin) 600 mg HS PO Last administered on 03/10/17 20:18; Start 03/09/17 at 21:00 Prednisone (Prednisone) 2.5 mg DAILY PO Last administered on 03/11/17 08:36; Start 03/10/17 at 09:00 Methotrexate (Rheumatrex) 7.5 mg BID PO ; Start 03/09/17 at 21:00; Stop at 23:25; Status DC Albuterol Sulfate (Ventolin) 2.5 mg PRN DAILY PRN NEB SHORTNESS OF BREATH; Start 03/09/17 at 21:30 Ipratropium [place] (Atrovent) 0.5 mg RTQID NEB Last administered on 03/11/17 16:31; Start 03/10/17 at 08:00 Acetaminophen/ Hydrocodone Bitart (Lortab 7.5/325) 1 tab PRN Q6HRS PRN PO PAIN Last administered on 03/10/17 21:10; Start 03/09/17 at 22:45; Stop 03/11/17 at 17:22; Status DC Fluticasone Propionate (Flonase) 1 spray Q12H NS Last administered on 08:35; Start 03/10/17 at 09:00; Stop 03/11/17 at 15:00; Status DC Multivitamins/ Minerals 10 ml/ Folic Acid 1 mg/ Thiamine HCl 100 mg/Dextrose/ Sodium Chloride 1,011.2 ml @ 100.009 mls/hr DAILY IV Last administered on 03/10 14:52; Start 03/10/17 at 14:00 Methotrexate (Rheumatrex) 7.5 mg WEEKLY PO ; Start 03/15/17 at 09:00 Iohexol (Omnipaque 240 Mg/ml) 50 ml 1X ONCE PO Last administered on 03/10/17 15:15; Start 03/10/17 at 15:15; Stop 03/10/17 at 15:37; Status DC Iohexol (Omnipaque 300 Mg/ml) 75 ml 1X ONCE IV Last administered on 03/10/17 16:41; Start 03/10/17 at 15:15; Stop 03/10/17 at 15:37; Status DC Bisacodyl (Dulcolax Supp) 10 mg PRN QHS PRN [place] CONSTIPATION; Start 03/10/17 at 18:00 Bisacodyl (Dulcolax Supp) 10 mg 1X ONCE [place] Last administered on 03/10/17 20: 16; Start 03/10/17 at 21:00; Stop 03/10/17 at 21:01; Status DC Sodium Chloride 0 ml @ As Directed STK-MED ONCE .ROUTE ; Start 03/11/17 at 10:39 ; Stop 03/11/17 at 10:40; Status DC Sodium Chloride 500 ml @ 0 mls/hr 1X ONCE IV ; Start 03/11/17 at 10:45; Stop at 10:53; Status DC Brimonidine Tartrate (Alphagan) 1 drop BID OU ; Start 03/11/17 at 15:00 Fluticasone Propionate (Flonase) 1 spray Q12H NS ; Start 03/11/17 at 15:00 Artificial Tears (Artificial Tears) 1 drop PRN QID PRN OU DRY EYE; Start at 15:00 Active Scripts Active Reported Diovan (Valsartan) 160 Mg Tablet 1 Tab PO DAILY Miralax (Polyethylene Glycol 3350) 17 Gm Powd.pack 1 Packet PO DAILY Preservision Lutein Softgel (Vit C/George Ac/Lut/Copper/Znox) 1 Each Capsule 1 Each PO Prednisone 2.5 Mg Tablet 1 Tab PO DAILY Folic Acid 1 Mg Tablet 1 Tab PO DAILY Methotrexate (Methotrexate Sodium) 2.5 Mg Tablet 7.5 Mg PO WEEKLY Atrovent Hfa (Ipratropium [place]) 12.9 Gm Hfa.aer.ad 2 Puff IH QID Fluticasone Propionate Nasal [place] (Fluticasone Propionate) 16 Gm [place].susp 1 Spr NS PRN Q6HRS Carvedilol 25 Mg Tablet 1 Tab PO BID Carbamide Peroxide 15 Ml Drops 5 Ml OT PRN DAILY Tylenol (Acetaminophen) 325 Mg Tablet 2 Tab PO PRN Q6HRS Zyrtec (Cetirizine Hcl) 10 Mg Tablet 1 Tab PO HS Proair Hfa Inhaler (Albuterol Sulfate) 8.5 Gm Hfa.aer.ad 1 Puff INH PRN Q4-6HRS PRN Restasis (Cyclosporine) 1 Each Droperette 1 Drop EACHEYE BID [place] (Ciclesonide) 6.1 Gm Hfa.aer.ad 6.1 Gm IH Q12HR Aspir-Low (Aspirin) 81 Mg Tablet.dr 1 Tab PO DAILY Enbrel (Etanercept) 50 Mg/1 Ml Disp.syrin 50 Mg SQ DAILY08 Gabapentin 600 Mg Tablet 600 Mg PO HS Genteal Gel Drops (Carboxymethylcell/Hypromellose) 25 Ml Drp.lq.gel 25 Ml OP PRN Artificial Tears Eye Drops (Dextran 70/Hypromellose) 15 Ml Drops 1 Drop EACHEYE QIDPRN Alphagan P (Brimonidine Tartrate) 5 Ml Drops 1 Drop EACHEYE BID Celebrex (Celecoxib) 100 Mg Capsule 1 Cap PO BID Latanoprost 2.5 Ml Drops 1 Drop EACHEYE QHS Vitals/I & O Vital Sign - Last 24 Hours 03/10/17 03/10/17 03/10/17 03/10/17 19:24 20:52 21:10 22:10 Temp 98.2 Pulse 80 Resp 18 B/P (MAP) 90/52 (65) Pulse Ox 97 O2 Delivery Room Air Room Air Room Air Room Air 03/10/17 03/11/17 03/11/17 03/11/17 23:21 04:43 05:39 09:22 Temp 97.6 98.2 Pulse 70 72 Resp 16 18 B/P (MAP) 110/64 (79) 140/67 (91) Pulse Ox 97 96 97 96 O2 Delivery Room Air Room Air Room Air Room Air 03/11/17 03/11/17 03/11/17 11:00 15:15 16:31 Temp 98.2 98.2 Pulse 78 78 B/P (MAP) 69/39 (49) 116/62 (80) Pulse Ox 99 99 96 O2 Delivery Room Air Room Air Intake and Output 03/10/17 03/10/17 03/11/17 15:00 23:00 07:00 Intake Total 720 ml 1144 ml 490 ml Output Total 200 ml 1150 ml 750 ml Balance 520 ml -6 ml -260 ml MATTIE SELBY MD Mar 11, 2017 18:17
[2017-03-11 18:29] VITALS: BP 107/67
[2017-03-11] MEDS: CETIRIZINE HCL 10 MG TABLET PO SCH (21:01)
[2017-03-11] MEDS: GABAPENTIN 300 MG CAPSULE. PO SCH (21:01)
[2017-03-11] MEDS: LATANOPROST 0.005% OPHTH SOLUTION 2.5ML BOTTLE. OU SCH (21:02)
[2017-03-11 21:21] VITALS: BP 138/68
[2017-03-11] MEDS: HYDROcodone/APAP 7.5/325MG 1 TAB TABLET PO PRN (22:06)
[2017-03-11 23:06] VITALS: BP 122/66
[2017-03-12] VITALS (9 sets, daily range): BP systolic 107–171; BP diastolic 56–81
[2017-03-12] MEDS: FLUTICASONE 50MCG/NASAL SPRAY 16GM BOTTLE. NS SCH ×2 (03:00→15:20)
[2017-03-12] MEDS: IV NORMAL SALINE 1,000ML 1,000 ML IV SCH (03:15)
[2017-03-12] MEDS: IPRATROPIUM BROMIDE 0.5 MG/2.5 ML NEBU. NEB SCH ×4 (05:35→20:59)
[2017-03-12 06:57] LABS: BASO # 0.1 x10^3/uL (0.0-0.2); BASO % 2 % (0-3); EOS # 0.2 x10^3/uL (0.0-0.7); EOS % 4 % (0-3); HEMATOCRIT 20.9 % (36.0-47.0); LYMPH # 1.2 x10^3/uL (1.0-4.8); LYMPH % 25 % (24-48); MEAN CORPUSCULAR HEMOGLOBIN 32 pg (25-35); MEAN CORPUSCULAR HGB CONC 33 g/dL (31-37); MEAN CORPUSCULAR VOLUME 97 fL (79-100); MONO # 0.3 x10^3/uL (0.0-1.1); MONO % 7 % (0-9); NEUT # 2.8 x10^3uL (1.8-7.7); NEUT % 62 % (31-73); PLATELET COUNT 246 x10^3/uL (140-400); RED BLOOD COUNT 2.16 x10^6/uL (3.50-5.40); RED CELL DISTRIBUTION WIDTH 16.8 % (11.5-14.5); WHITE BLOOD COUNT 4.6 x10^3/uL (4.0-11.0)
[2017-03-12 06:59] LABS: HEMOGLOBIN 6.9 g/dL (12.0-15.5)
[2017-03-12 07:07] LABS: ALBUMIN 2.1 g/dL (3.4-5.0); ALBUMIN/GLOBULIN RATIO 0.7 (1.0-1.7); CALCIUM 7.5 mg/dL (8.5-10.1); CREATININE 0.7 mg/dL (0.6-1.0); GFR 79.7; TOTAL BILIRUBIN 0.3 mg/dL (0.2-1.0)
[2017-03-12] MEDS: PANTOPRAZOLE 40 MG TABLET. PO SCH (07:50)
--- NOTE | 2017-03-12 07:53 | PDOC ---
PROGRESS NOTES Assessment 1. Hypotension: BP's have improved dramatically. Cont to stay off IVF. Renal function OK. See below re: anemia. 2. Anemia: Possibly due to medications like MTX, Enbrel, Celebrex. No evidence of blood loss, but cannot completely rule that out either. Unfortunately, pt has tried to stop each of these meds in the past and was miserable. Hgb down to 6.9. Will transfuse 1 unit today. May need transfer for endoscopy if Hgb continues to drop. 3. RA: Severe, pt has severe deformities. Continue home meds. Restarted hydrocodone last night and BP has been adequate. 4. Dehydration: Resolved. Monitor renal function. 5. DVT proph: SCD's only, no anticoagulation due to low Hgb and risk of bleeding. 6. UTI : Culture showed E. Coli, sens to Macrobid but resistant to Levaquin. Will d/c Levaquin, give Macrobid 100 mg BID x 3 days. 7. 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 May need ultrasound tech consult as outpatient. Problems: Plan of Care: see other orders Subjective Pt states she is feeling ok this morning. Still a little weak. Pain better controlled since restarting her hydrocodone. Still a little lightheaded when standing. Pt denies fever, n/v, abd pain, CP, or SOA. Objective Vital Signs Date Time Temp Pulse Resp B/P (MAP) Pulse Ox O2 Delivery O2 Flow Rate FiO2 03/12/17 05:37 100 Room Air 03/12/17 05:15 98.2 75 20 159/70 (99) 03/10/17 05:50 99.0 Intake and Output 03/12/17 07:00 Intake Total 1776.53 ml Output Total 1900 ml Balance -123.47 ml Intake Oral 1330 ml IV Total 446.53 ml Output Urine Total 1900 ml # Bowel Movements 3 Abdomen: Soft, No tenderness, No hepatospenomegaly, No masses Heart: Regular rate, Normal S1, Normal S2, No murmurs Extremities: No edema General: Alert, Oriented X3, Cooperative, No acute distress HEENT: Atraumatic, PERRLA, EOMI, Mucous membr. moist/pink Lungs: Clear to auscultation, Normal air movement Neck: No JVD, No thyromegaly Neuro: Other (No focal abnormalities) Psych/Mental Status: Mental status NL, Mood NL Skin: No rashes Review of Relevant I have reviewed the following items kevyn (where applicable) has been applied. Labs Laboratory Tests Test 03/10/17 11:44 03/11/17 06:30 03/11/17 11:26 03/12/17 06:33 Stool Occult Blood Negative (NEG) White Blood Count 6.3 x10^3/uL (4.0-11.0) 4.6 x10^3/uL (4.0-11.0) Red Blood Count 2.24 x10^6/uL (3.50-5.40) 2.16 x10^6/uL (3.50-5.40) Hemoglobin 7.3 g/dL (12.0-15.5) 7.1 g/dL (12.0-15.5) 6.9 g/dL (12.0-15.5) Hematocrit 21.8 % (36.0-47.0) 20.9 % (36.0-47.0) Mean Corpuscular Volume 98 fL (79-100) 97 fL (79-100) Mean Corpuscular Hemoglobin 33 pg (25-35) 32 pg (25-35) Mean Corpuscular Hemoglobin Concent 33 g/dL (31-37) 33 g/dL (31-37) Red Cell Distribution Width 17.3 % (11.5-14.5) 16.8 % (11.5-14.5) Platelet Count 258 x10^3/uL (140-400) 246 x10^3/uL (140-400) Neutrophils (%) (Auto) 73 % (31-73) 62 % (31-73) Lymphocytes (%) (Auto) 18 % (24-48) 25 % (24-48) Monocytes (%) (Auto) 6 % (0-9) 7 % (0-9) Eosinophils (%) (Auto) 2 % (0-3) 4 % (0-3) Basophils (%) (Auto) 1 % (0-3) 2 % (0-3) Neutrophils # (Auto) 4.6 x10^3uL (1.8-7.7) 2.8 x10^3uL (1.8-7.7) Lymphocytes # (Auto) 1.1 x10^3/uL (1.0-4.8) 1.2 x10^3/uL (1.0-4.8) Monocytes # (Auto) 0.3 x10^3/uL (0.0-1.1) 0.3 x10^3/uL (0.0-1.1) Eosinophils # (Auto) 0.1 x10^3/uL (0.0-0.7) 0.2 x10^3/uL (0.0-0.7) Basophils # (Auto) 0.1 x10^3/uL (0.0-0.2) 0.1 x10^3/uL (0.0-0.2) Sodium Level 136 mmol/L (136-145) 138 mmol/L (136-145) Potassium Level 3.9 mmol/L (3.5-5.1) 4.0 mmol/L (3.5-5.1) Chloride Level 106 mmol/L (98-107) 108 mmol/L (98-107) Carbon Dioxide Level 23 mmol/L (21-32) 25 mmol/L (21-32) Anion Gap 7 (6-14) 5 (6-14) Blood Urea Nitrogen 16 mg/dL (7-20) 11 mg/dL (7-20) Creatinine 0.8 mg/dL (0.6-1.0) 0.7 mg/dL (0.6-1.0) Estimated GFR (Cockcroft-Gault) 68.3 79.7 BUN/Creatinine Ratio 20 (6-20) 16 (6-20) Glucose Level 105 mg/dL (70-99) 77 mg/dL (70-99) Calcium Level 7.9 mg/dL (8.5-10.1) 7.5 mg/dL (8.5-10.1) Magnesium Level 2.0 mg/dL (1.8-2.4) Total Bilirubin 0.3 mg/dL (0.2-1.0) 0.3 mg/dL (0.2-1.0) Aspartate Amino Transf (AST/SGOT) 18 U/L (15-37) 15 U/L (15-37) Alanine Aminotransferase (ALT/SGPT) 17 U/L (14-59) 15 U/L (14-59) Alkaline Phosphatase 94 U/L (46-116) 91 U/L (46-116) Total Protein 5.4 g/dL (6.4-8.2) 5.0 g/dL (6.4-8.2) Albumin 2.2 g/dL (3.4-5.0) 2.1 g/dL (3.4-5.0) Albumin/Globulin Ratio 0.7 (1.0-1.7) 0.7 (1.0-1.7) Microbiology 03/09/17 Urine Culture - Final, Complete 03/09/17 Urine Culture Result 1 (MERCEDES) - Final, Complete 03/09/17 Antimicrobic Susceptibility - Final, Complete Medications Current Medications Sodium Chloride 1,000 ml @ 1,000 mls/hr 1X ONCE IV ; Start 03/09/17 at 12:30; Stop 03/09/17 at 13:29; Status DC Levofloxacin/ Dextrose 100 ml @ 100 mls/hr 1X ONCE IV Last administered on 14:10; Start 03/09/17 at 14:10; Stop 03/09/17 at 15:09; Status DC Ondansetron HCl (Zofran) 4 mg PRN Q4HRS PRN IV NAUSEA/VOMITING; Start 03/09/17 at 14:00; Stop 03/10/17 at 13:59; Status DC Morphine Sulfate (Morphine 2mg Syringe) 2 mg PRN Q2HR PRN IV PAIN; Start at 14:00; Stop 03/09/17 at 19:18; Status DC Sodium Chloride 1,000 ml @ 100 mls/hr Q10H IV Last administered on 03/11/17 16:19; Start 03/09/17 at 19:00 Levofloxacin/ Dextrose 100 ml @ 100 mls/hr Q24H IV ; Start 03/10/17 at 15:00; Stop 03/10/17 at 15:00; Status DC Levofloxacin/ Dextrose 50 ml @ 50 mls/hr Q24H IV Last administered on 16:17; Start 03/10/17 at 15:00 Pantoprazole Sodium (Protonix) 40 mg DAILYAC PO Last administered on 03/11/17 07:48; Start 03/09/17 at 19:30 Enoxaparin Sodium (Lovenox) 30 mg Q24H SQ Last administered on 03/09/17 20:45 ; Start 03/09/17 at 20:45; Stop 03/10/17 at 07:10; Status DC Acetaminophen (Tylenol) 650 mg PRN Q6HRS PRN PO PAIN/FEVER; Start 03/09/17 at 20:45 Albuterol Sulfate (Ventolin Hfa) 1 puff PRN DAILY PRN INH SHORTNESS OF BREATH; Start 03/09/17 at 20:45; Stop 03/09/17 at 21:33; Status DC Aspirin (Aspirin Enteric Coated) 81 mg DAILY PO Last administered on 03/11/17 08:36; Start 03/10/17 at 09:00 Celecoxib (CeleBREX) 100 mg BID PO Last administered on 03/10/17 08:24; Start 03/09/17 at 21:00; Stop 03/10/17 at 12:16; Status DC Cetirizine HCl (ZyrTEC) 10 mg HS PO Last administered on 03/11/17 21:01; Start 03/09/17 at 21:00 Cyclosporine (Restasis) 1 drop BID OU Last administered on 03/11/17 21:01; Start 03/09/17 at 21:00 Fluticasone Propionate (Flonase) 1 spray PRN Q6HRS PRN NS ALLERGIES Last administered on 03/10/17 08:24; Start 03/09/17 at 20:45; Stop 03/10/17 at 08:44 ; Status DC Folic Acid (Folic Acid) 1 mg DAILY PO Last administered on 03/11/17 08:36; Start 03/10/17 at 09:00 Ipratropium [place] (Atrovent Hfa) 2 puff QID IH ; Start 03/09/17 at 21:00; Stop 03/09/17 at 21:33; Status DC Latanoprost (Xalatan) 1 drop HS OU Last administered on 03/11/17 21:02; Start 03/09/17 at 21:00 Polyethylene Glycol (miraLAX) 17 gm DAILY PO Last administered on 03/11/17 08: 35; Start 03/10/17 at 09:00 Brimonidine Tartrate (Alphagan) 1 drop BID OU Last administered on 03/11/17 08 :39; Start 03/09/17 at 21:00; Stop 03/11/17 at 15:00; Status DC Non-Formulary Medication 25 ml PRN OP ; Start 03/09/17 at 20:45; Stop 03/09/17 at 21:31; Status DC Non-Formulary Medication 6.1 gm Q12HR IH ; Start 03/09/17 at 21:00; Stop at 08:45; Status DC Artificial Tears (Artificial Tears) 1 drop PRN QID PRN OU DRY EYE Last administered on 03/11/17 08:37; Start 03/09/17 at 21:15; Stop 03/11/17 at 15:00 ; Status DC Non-Formulary Medication 50 mg DAILY08 SQ ; Start 03/10/17 at 08:00; Stop at 13:05; Status DC Gabapentin (Neurontin) 600 mg HS PO Last administered on 03/11/17 21:01; Start 03/09/17 at 21:00 Prednisone (Prednisone) 2.5 mg DAILY PO Last administered on 03/11/17 08:36; Start 03/10/17 at 09:00 Methotrexate (Rheumatrex) 7.5 mg BID PO ; Start 03/09/17 at 21:00; Stop at 23:25; Status DC Albuterol Sulfate (Ventolin) 2.5 mg PRN DAILY PRN NEB SHORTNESS OF BREATH; Start 03/09/17 at 21:30 Ipratropium [place] (Atrovent) 0.5 mg RTQID NEB Last administered on 03/12/17 05:35; Start 03/10/17 at 08:00 Acetaminophen/ Hydrocodone Bitart (Lortab 7.5/325) 1 tab PRN Q6HRS PRN PO PAIN Last administered on 03/10/17 21:10; Start 03/09/17 at 22:45; Stop 03/11/17 at 17:22; Status DC Fluticasone Propionate (Flonase) 1 spray Q12H NS Last administered on 08:35; Start 03/10/17 at 09:00; Stop 03/11/17 at 15:00; Status DC Multivitamins/ Minerals 10 ml/ Folic Acid 1 mg/ Thiamine HCl 100 mg/Dextrose/ Sodium Chloride 1,011.2 ml @ 100.009 mls/hr DAILY IV Last administered on 03/10 14:52; Start 03/10/17 at 14:00 Methotrexate (Rheumatrex) 7.5 mg WEEKLY PO ; Start 03/15/17 at 09:00 Iohexol (Omnipaque 240 Mg/ml) 50 ml 1X ONCE PO Last administered on 03/10/17 15:15; Start 03/10/17 at 15:15; Stop 03/10/17 at 15:37; Status DC Iohexol (Omnipaque 300 Mg/ml) 75 ml 1X ONCE IV Last administered on 03/10/17 16:41; Start 03/10/17 at 15:15; Stop 03/10/17 at 15:37; Status DC Bisacodyl (Dulcolax Supp) 10 mg PRN QHS PRN [place] CONSTIPATION; Start 03/10/17 at 18:00 Bisacodyl (Dulcolax Supp) 10 mg 1X ONCE [place] Last administered on 03/10/17 20: 16; Start 03/10/17 at 21:00; Stop 03/10/17 at 21:01; Status DC Sodium Chloride 0 ml @ As Directed STK-MED ONCE .ROUTE ; Start 03/11/17 at 10:39 ; Stop 03/11/17 at 10:40; Status DC Sodium Chloride 500 ml @ 0 mls/hr 1X ONCE IV ; Start 03/11/17 at 10:45; Stop at 10:53; Status DC Brimonidine Tartrate (Alphagan) 1 drop BID OU Last administered on 03/11/17 21 :02; Start 03/11/17 at 15:00 Fluticasone Propionate (Flonase) 1 spray Q12H NS ; Start 03/11/17 at 15:00 Artificial Tears (Artificial Tears) 1 drop PRN QID PRN OU DRY EYE; Start at 15:00 Acetaminophen/ Hydrocodone Bitart (Lortab 7.5/325) 1 tab PRN Q6HRS PRN PO PAIN Last administered on 03/11/17 22:06; Start 03/11/17 at 21:30 Active Scripts Active Reported Diovan (Valsartan) 160 Mg Tablet 1 Tab PO DAILY Miralax (Polyethylene Glycol 3350) 17 Gm Powd.pack 1 Packet PO DAILY Preservision Lutein Softgel (Vit C/George Ac/Lut/Copper/Znox) 1 Each Capsule 1 Each PO Prednisone 2.5 Mg Tablet 1 Tab PO DAILY Folic Acid 1 Mg Tablet 1 Tab PO DAILY Methotrexate (Methotrexate Sodium) 2.5 Mg Tablet 7.5 Mg PO WEEKLY Atrovent Hfa (Ipratropium [place]) 12.9 Gm Hfa.aer.ad 2 Puff IH QID Fluticasone Propionate Nasal [place] (Fluticasone Propionate) 16 Gm [place].susp 1 Spr NS PRN Q6HRS Carvedilol 25 Mg Tablet 1 Tab PO BID Carbamide Peroxide 15 Ml Drops 5 Ml OT PRN DAILY Tylenol (Acetaminophen) 325 Mg Tablet 2 Tab PO PRN Q6HRS Zyrtec (Cetirizine Hcl) 10 Mg Tablet 1 Tab PO HS Proair Hfa Inhaler (Albuterol Sulfate) 8.5 Gm Hfa.aer.ad 1 Puff INH PRN Q4-6HRS PRN Restasis (Cyclosporine) 1 Each Droperette 1 Drop EACHEYE BID [place] (Ciclesonide) 6.1 Gm Hfa.aer.ad 6.1 Gm IH Q12HR Aspir-Low (Aspirin) 81 Mg Tablet.dr 1 Tab PO DAILY Enbrel (Etanercept) 50 Mg/1 Ml Disp.syrin 50 Mg SQ DAILY08 Gabapentin 600 Mg Tablet 600 Mg PO HS Genteal Gel Drops (Carboxymethylcell/Hypromellose) 25 Ml Drp.lq.gel 25 Ml OP PRN Artificial Tears Eye Drops (Dextran 70/Hypromellose) 15 Ml Drops 1 Drop EACHEYE QIDPRN Alphagan P (Brimonidine Tartrate) 5 Ml Drops 1 Drop EACHEYE BID Celebrex (Celecoxib) 100 Mg Capsule 1 Cap PO BID Latanoprost 2.5 Ml Drops 1 Drop EACHEYE QHS Vitals/I & O Vital Sign - Last 24 Hours 03/11/17 03/11/17 03/11/17 03/11/17 09:22 11:00 15:15 16:31 Temp 98.2 98.2 Pulse 78 78 B/P (MAP) 69/39 (49) 116/62 (80) Pulse Ox 96 99 99 96 O2 Delivery Room Air Room Air Room Air 03/11/17 03/11/17 03/11/17 03/11/17 18:29 19:15 20:52 21:21 Temp 99.2 Pulse 79 79 Resp 20 18 B/P (MAP) 107/67 (80) 138/68 (91) Pulse Ox 98 97 98 O2 Delivery Room Air Room Air Room Air Room Air 03/11/17 03/11/17 03/11/17 03/12/17 22:06 23:06 23:23 05:15 Temp 98.5 98.2 Pulse 78 75 Resp 18 18 18 20 B/P (MAP) 122/66 (84) 159/70 (99) Pulse Ox 97 97 98 O2 Delivery Room Air Room Air Room Air Room Air 03/12/17 05:37 Pulse Ox 100 O2 Delivery Room Air Intake and Output 03/11/17 03/11/17 03/12/17 15:00 23:00 07:00 Intake Total 680 ml 746.53 ml 350 ml Output Total 500 ml 900 ml 500 ml Balance 180 ml -153.47 ml -150 ml MATTIE SELBY MD Mar 12, 2017 07:53
[2017-03-12] MEDS: FOLIC ACID 1 MG TABLET PO SCH (09:35)
[2017-03-12] MEDS: ASPIRIN ENTERIC COATED 81 MG TABLET.DR. PO SCH (09:35)
[2017-03-12] MEDS: NITROFURANTOIN MONOHYD/M-CRYST 100 MG CAPSULE. PO SCH ×2 (09:35→20:27)
[2017-03-12] MEDS: predniSONE 5 MG TABLET PO SCH (09:36)
[2017-03-12] MEDS: BRIMONIDINE 0.2% OPHTH SOLUTION 5ML BOTTLE. OU SCH ×2 (09:36→20:24)
[2017-03-12] MEDS: cycloSPORINE 0.05% OPTH 1 DROP DROPERETTE OU SCH ×2 (09:36→20:25)
[2017-03-12] MEDS: POLYETHYLENE GLYCOL 3350 17 GM PACKET. PO SCH (09:38)
[2017-03-12] MEDS: MVI, ADULT NO.4 WITH VIT K 10 ML, FOLIC ACID 1 MG, THIAMINE 100 MG in IV DEXTROSE 5 %-0... IV SCH ×4 (11:51)
[2017-03-12 14:11] LABS: HEMATOCRIT 24.4 % (36.0-47.0)
[2017-03-12] MEDS: LATANOPROST 0.005% OPHTH SOLUTION 2.5ML BOTTLE. OU SCH (20:24)
[2017-03-12] MEDS: GABAPENTIN 300 MG CAPSULE. PO SCH (20:25)
[2017-03-12] MEDS: HYDROcodone/APAP 7.5/325MG 1 TAB TABLET PO PRN (20:26)
[2017-03-12] MEDS: CETIRIZINE HCL 10 MG TABLET PO SCH (20:26)
[2017-03-13] MEDS: FLUTICASONE 50MCG/NASAL SPRAY 16GM BOTTLE. NS SCH ×2 (03:00→17:12)
[2017-03-13 05:32] VITALS: BP 163/75
[2017-03-13] MEDS: IPRATROPIUM BROMIDE 0.5 MG/2.5 ML NEBU. NEB SCH ×4 (05:35→20:25)
[2017-03-13 06:25] LABS: BASO # 0.1 x10^3/uL (0.0-0.2); BASO % 1 % (0-3); EOS # 0.3 x10^3/uL (0.0-0.7); EOS % 6 % (0-3); HEMATOCRIT 26.2 % (36.0-47.0); HEMOGLOBIN 8.7 g/dL (12.0-15.5); LYMPH # 1.2 x10^3/uL (1.0-4.8); LYMPH % 22 % (24-48); MEAN CORPUSCULAR HEMOGLOBIN 31 pg (25-35); MEAN CORPUSCULAR HGB CONC 33 g/dL (31-37); MEAN CORPUSCULAR VOLUME 94 fL (79-100); MONO # 0.4 x10^3/uL (0.0-1.1); MONO % 8 % (0-9); NEUT # 3.4 x10^3uL (1.8-7.7); NEUT % 63 % (31-73); PLATELET COUNT 232 x10^3/uL (140-400); RED BLOOD COUNT 2.77 x10^6/uL (3.50-5.40); RED CELL DISTRIBUTION WIDTH 17.5 % (11.5-14.5); WHITE BLOOD COUNT 5.4 x10^3/uL (4.0-11.0)
[2017-03-13 06:40] LABS: ALBUMIN 2.2 g/dL (3.4-5.0); ALBUMIN/GLOBULIN RATIO 0.8 (1.0-1.7); CALCIUM 7.8 mg/dL (8.5-10.1); CREATININE 0.7 mg/dL (0.6-1.0); GFR 79.7; TOTAL BILIRUBIN 0.3 mg/dL (0.2-1.0); TOTAL PROTEIN 4.9 g/dL (6.4-8.2)
[2017-03-13] MEDS: PANTOPRAZOLE 40 MG TABLET. PO SCH (08:34)
[2017-03-13] MEDS: NITROFURANTOIN MONOHYD/M-CRYST 100 MG CAPSULE. PO SCH ×2 (08:34→21:00)
[2017-03-13] MEDS: FOLIC ACID 1 MG TABLET PO SCH (08:35)
[2017-03-13] MEDS: POLYETHYLENE GLYCOL 3350 17 GM PACKET. PO SCH (08:35)
[2017-03-13] MEDS: predniSONE 5 MG TABLET PO SCH (08:35)
[2017-03-13] MEDS: cycloSPORINE 0.05% OPTH 1 DROP DROPERETTE OU SCH ×2 (08:35→20:56)
[2017-03-13] MEDS: ASPIRIN ENTERIC COATED 81 MG TABLET.DR. PO SCH (08:35)
[2017-03-13] MEDS: BRIMONIDINE 0.2% OPHTH SOLUTION 5ML BOTTLE. OU SCH ×2 (08:36→20:56)
[2017-03-13 08:47] VITALS: BP 136/74
[2017-03-13] MEDS: MVI, ADULT NO.4 WITH VIT K 10 ML, FOLIC ACID 1 MG, THIAMINE 100 MG in IV DEXTROSE 5 %-0... IV SCH ×8 (08:51→09:00)
[2017-03-13 10:35] VITALS: BP 114/67
[2017-03-13 15:39] VITALS: BP 159/77
[2017-03-13 20:40] VITALS: BP 145/71
[2017-03-13] MEDS: LATANOPROST 0.005% OPHTH SOLUTION 2.5ML BOTTLE. OU SCH (20:56)
[2017-03-13] MEDS: GABAPENTIN 300 MG CAPSULE. PO SCH (20:59)
[2017-03-13] MEDS: CETIRIZINE HCL 10 MG TABLET PO SCH (21:00)
[2017-03-13] MEDS: HYDROcodone/APAP 7.5/325MG 1 TAB TABLET PO PRN (21:02)
[2017-03-14] MEDS: FLUTICASONE 50MCG/NASAL SPRAY 16GM BOTTLE. NS SCH (03:00)
--- NOTE | 2017-03-14 04:28 | PN ---
DATE: 03/13/2017 SUBJECTIVE: The patient is resting slightly propped up in bed, in no apparent respiratory distress. She was awake, alert. On questioning her, she continued to have aches and pain in her left shoulder and feet. She has to keep her shoes on because of severe rheumatoid arthritis affecting her feet, but denied any dizziness, lightheadedness, or vertigo. She has been up and about walking with physical therapist. PHYSICAL EXAMINATION: GENERAL: When I examined her, she was pale, not jaundiced or cyanosed. No lymphadenopathy, no thyromegaly, no jugular venous distention, but mild bilateral lower limb edema. VITAL SIGNS: Her heart rate was 69, blood pressure was 119/82, temperature was 98, respiratory rate 16, and oxygen saturation was 99% on room air. HEAD, EYES, EARS, NOSE AND THROAT: Showed normocephalic, atraumatic. NECK: Supple. HEART: Showed normal first and second heart sounds with no gallop, rub or murmur. CHEST: Clear to auscultation. No crepitation or rhonchi. ABDOMEN: Distended, soft, nontender. No guarding or rigidity. No organomegaly. All hernial orifices intact. Bowel sounds normal. NEUROLOGIC: She was awake, alert, responding appropriately. Her cranial nerves intact. She moves all extremities without difficulty, although she has broken her collar bone and right humerus and she is now in [id number] splint. Her intake over the last 24 hours was 1776, output was 1900. LABORATORY DATA: As of this morning showed a serum sodium 139, potassium 4, chloride 110, bicarbonate 23, anion gap of 6, BUN 10, creatinine 0.7, estimated GFR was 79 mL per minute. Her glucose was 79, calcium was 7.8, magnesium was 2. Total bilirubin, AST, ALT, alkaline phosphatase were normal. Total protein was 4.9, albumin 2.2. Her white cell count was 5400, hemoglobin 8.7, hematocrit 26.2, MCV 94 and platelet count 232,000 with normal manual differential. Her urine culture has grown more than 100,000 colony forming units per mL of Escherichia coli sensitive to cefepime, ceftriaxone as well as ertapenem, gentamicin, nitrofurantoin, tobramycin as well as trimethoprim sulfamethoxazole. ASSESSMENT: 1. Hypotension, resolved. She started having swelling together with low oncotic pressure, so I discontinued her IV fluid. 2. Anemia with no evidence of blood loss. Her stool for occult blood was negative; however, she is on Celebrex. She has rheumatoid arthritis and she has been on methotrexate as well as Enbrel. She indicated that she might have anemia of chronic disease, obviously with dilution the extent of her anemia showed up, although she drops significantly her hemoglobin from 8.3 to 6.9 and did receive 1 unit. As of today, her hemoglobin is 8.7, hematocrit 26.2. 3. Rheumatoid arthritis, severe deforming, for which she is currently on methotrexate, hydrocodone, prednisone. 4. Dehydration, resolved. Her BUN and creatinine is down from 26 to 10 and her creatinine is from 0.8 to 0.7. 5. Fracture of right clavicle as well as right shoulder, for which she is on [id number] splint. 6. Urinary tract infection growing Escherichia coli sensitive to nitrofurantoin. 7. Severe protein calorie malnutrition with serum albumin is only 2.2 mg/dL. PLAN: My plan is to stop the IV fluid and repeat all her labs tomorrow, and if her blood pressure and blood count remains stable, she can be discharged back to the mother's house. ALIX CHE MD DR: MYLES/marc JOB#: [id number] / [id number]
[2017-03-14 05:15] VITALS: BP 168/72
[2017-03-14] MEDS: IPRATROPIUM BROMIDE 0.5 MG/2.5 ML NEBU. NEB SCH ×2 (05:21→09:26)
[2017-03-14 06:34] LABS: HEMATOCRIT 25.9 % (36.0-47.0); HEMOGLOBIN 8.7 g/dL (12.0-15.5); RED BLOOD COUNT 2.76 x10^6/uL (3.50-5.40); RED CELL DISTRIBUTION WIDTH 16.4 % (11.5-14.5); WHITE BLOOD COUNT 5.1 x10^3/uL (4.0-11.0)
[2017-03-14 06:53] LABS: ALBUMIN 2.3 g/dL (3.4-5.0); ALBUMIN/GLOBULIN RATIO 0.8 (1.0-1.7); C REACTIVE PROTEIN 17.2 mg/L (0-3.3); CALCIUM 8.1 mg/dL (8.5-10.1); CREATININE 0.7 mg/dL (0.6-1.0); GFR 79.7; POTASSIUM 3.7 mmol/L (3.5-5.1); TOTAL BILIRUBIN 0.3 mg/dL (0.2-1.0); TOTAL PROTEIN 5.1 g/dL (6.4-8.2)
[2017-03-14] MEDS: predniSONE 5 MG TABLET PO SCH (07:32)
[2017-03-14] MEDS: ASPIRIN ENTERIC COATED 81 MG TABLET.DR. PO SCH (07:32)
[2017-03-14] MEDS: cycloSPORINE 0.05% OPTH 1 DROP DROPERETTE OU SCH (07:32)
[2017-03-14] MEDS: PANTOPRAZOLE 40 MG TABLET. PO SCH (07:32)
[2017-03-14] MEDS: NITROFURANTOIN MONOHYD/M-CRYST 100 MG CAPSULE. PO SCH (07:32)
[2017-03-14] MEDS: FOLIC ACID 1 MG TABLET PO SCH (07:32)
[2017-03-14] MEDS: BRIMONIDINE 0.2% OPHTH SOLUTION 5ML BOTTLE. OU SCH (07:33)
[2017-03-14] MEDS: POLYETHYLENE GLYCOL 3350 17 GM PACKET. PO SCH (07:33)
[2017-03-14] MEDS ORDERED: FLUTICASONE 50MCG/NASAL SPRAY 16GM BOTTLE. NS SCH (09:00)
[2017-03-14 09:53] VITALS: BP 121/63
--- NOTE | 2017-03-14 23:46 | DS ---
DATE OF DISCHARGE: 03/14/2017 HOSPITAL COURSE: The patient is an 86-year-old female patient, a sister who resides at [facility], who was admitted initially with hypotension, treated with IV fluid. She was also found to have urinary tract infection and also acute blood loss anemia for which she received 1 unit of packed RBCs. She was started on Levaquin initially. Her urine culture has grown more than 100,000 colony-forming units per mL of Escherichia coli, which is sensitive to nitrofurantoin. She did actually very well, has been up and about. She continued to have some . She was on Coreg 25 mg twice a day as well as Diovan 160 mg once a day, I think that with infection and blood loss anemia has conspired . PHYSICAL EXAMINATION: GENERAL: When I saw her today, she looked well and was clearly in no apparent respiratory distress, pale, but no jaundice, cyanosis, lymphadenopathy, or thyromegaly. No jugular venous distention. No limb edema. VITAL SIGNS: Her heart rate was 78, blood pressure 121/63, temperature was 98.1, respiratory rate was 16, and oxygen saturation was 98% on room air. HEENT: Showed normocephalic, atraumatic. NECK: Supple. HEART: Showed normal first and second heart sounds with no gallop or murmur. CHEST: Clear to auscultation. No crepitation or rhonchi. ABDOMEN: Distended, soft, nontender. No guarding or rigidity. No organomegaly. Hernial orifices intact. Bowel sounds normal. NEUROLOGIC: She is awake, alert, responding appropriately. Cranial nerves intact. She moves extremities without difficulty, although she has severe deforming rheumatoid arthritis. She is in a figure of 8 as she broke her right clavicle and right shoulder. Her intake over the last 24 hours was 840, output was 1100. LABORATORY DATA: This morning showed a white cell count 5100, hemoglobin 8.7, hematocrit 25.9, MCV 94 and platelet count 201,000. Her sedimentation rate was 37 mm per hour. Her chemistry showed a serum of sodium of 141, potassium 3.7, chloride 108, bicarbonate 23, anion gap of 10, BUN 10, creatinine 0.7, estimated GFR was 80 mL per minute. Her glucose was 76, calcium was 8.1. Total bilirubin, AST, ALT, alkaline phosphatase were normal. Her C-reactive protein was slightly high at 17.2 mg/dL. Total protein was 5.1, albumin was 2.3. DISCHARGE MEDICATIONS: The patient will be discharged home back [facility] to continue on methotrexate 7.5 mg weekly, Flonase 1 spray to each nostril twice a day, Macrobid 100 mg p.o. b.i.d. for 7 days, hydrocodone/APAP 7.5/325 one tablet every 6 hours, artificial tear 1 drop to both eyes 4 times a day as needed, brimonidine tartrate for Alphagan one drop to both eyes twice a day, bisacodyl 10 mg suppositories rectally as needed for constipation, prednisone 2.5 mg once a day, polyethylene glycol 17 grams daily, folic acid 1 mg once a day, aspirin 81 mg once a day, Atrovent 0.5 mg q.i.d., albuterol sulfate 2.5 mg by nebulizer 4 times a day, gabapentin 600 mg at bedtime, latanoprost for Xalatan 1 drop to both eyes at bedtime, cyclosporine one drop twice a day, cetirizine 10 mg at bedtime, acetaminophen 650 mg every 6 hours, Protonix 40 mg once a day. FINAL DISCHARGE DIAGNOSES: 1. Hypotension, multifactorial, most likely due to excessive antihypertensive medication, urinary tract infection and anemia, improved. 2. Anemia due to a combination of acute blood loss as well as anemia of chronic disease. She is on methotrexate, Enbrel and Celebrex. She did receive 1 unit of packed RBCs and her H and H has been stable for the last 3 days. 3. Rheumatoid arthritis, severe, deforming. To continue on her home medications including methotrexate, prednisone, Celebrex as well as hydrocodone. 4. Dehydration, resolved. Her kidney function is stable. Her BUN is down from 26 to 10 and her creatinine is down to 0.7 mg/dL. 5. Urinary tract infection with growth of more than 100,000 colony forming units per mL of gram-negative rods identified as Escherichia coli sensitive to Macrobid. 6. Severe protein calorie malnutrition with serum albumin of 2.3 g/dL. ALIX CHE MD DR: MYLES/marc JOB#: [id number] / [id number]
[2017-03-15] MEDS ORDERED: METHOTREXATE SODIUM 2.5 MG TABLET PO SCH (09:00)
== END 2017-03-14 13:30 | disposition home or self-care (01) | DRG 917 ==
LOC: ER 11:08 → 1 SOUTH 15:30
PROVIDERS: ADMIT Family Medicine; ATTEND Family Medicine
PROC: 30233N1 Transfusion of Nonautologous Red Blood Cells into Peripheral Vein, Percutaneous Approach (ICD-10-PCS; principal; 2017-03-12)
DX: T46.5X5A Adverse effect of other antihypertensive drugs, initial encounter (principal); E43 Unspecified severe protein-calorie malnutrition; I95.9 Hypotension, unspecified; E86.0 Dehydration; N19 Unspecified kidney failure; R31.9 Hematuria, unspecified; N39.0 Urinary tract infection, site not specified; D62 Acute posthemorrhagic anemia; D63.8 Anemia in other chronic diseases classified elsewhere; G89.29 Other chronic pain; H35.30 Unspecified macular degeneration; B96.20 Unspecified Escherichia coli [E. coli] as the cause of diseases classified elsewhere; E78.00 Pure hypercholesterolemia, unspecified; E78.5 Hyperlipidemia, unspecified; I10 Essential (primary) hypertension; J42 Unspecified chronic bronchitis; J45.909 Unspecified asthma, uncomplicated; K21.9 Gastro-esophageal reflux disease without esophagitis; M06.9 Rheumatoid arthritis, unspecified; M81.0 Age-related osteoporosis without current pathological fracture; Z80.0 Family history of malignant neoplasm of digestive organs; Z79.891 Long term (current) use of opiate analgesic; Z82.49 Family history of ischemic heart disease and other diseases of the circulatory system; Z80.1 Family history of malignant neoplasm of trachea, bronchus and lung; Y92.89 Other specified places as the place of occurrence of the external cause; Z68.20 Body mass index [BMI] 20.0-20.9, adult; H90.2 Conductive hearing loss, unspecified
CPT/HCPCS: 36415; 71010; 74177; 80048; 80053; 80076; 81001; 82274; 82607; 82728; 83540; 83550; 83605; 83690; 83735; 84484; 85014; 85018; 85025; 85027; 85651; 86140; 86850; 86900; 86901; 86920; 87086; 87186; 87641; 93005; 94640; 96360; J1650; J1956; J7512; J7644; P9016; Q9966; Q9967; 97116; 97530; 97535; 99285-25; J7030

== ENCOUNTER 2017-04-23 08:35 | Emergency (ER) | payer MEDICARE, OTHER ==
[~2017-04-23] VITALS: Ht 154.9 cm; Wt 49.4 kg
[~2017-04-23 08:35] MED LIST: ACET325T9 PO; ALBU8.5H8 INH; ASPI81TA50 PO; BRIM5DRO3 EACHEYE; CARB15DR58 OT; CARB25DR OP; CARV25TA2 PO; CELE100C PO; CETI10TA22 PO; CICL6.1H4 IH; CYCL1DRO EACHEYE; DEXT15DR5 EACHEYE; ETAN50DI2 SQ; FLUT16SP21 NS; FOLI1TAB16 PO; GABA600T2 PO; IPRA12.9 IH; LATA2.5D3 EACHEYE; METH2.5T PO; POLY17PO5 PO; PRED2.5T PO; VALS160T3 PO; VIT1CAPS17 PO
[2017-04-23] MEDS: IV NORMAL SALINE 1,000ML 1,000 ML IV ONE ×3 (08:45→11:50)
--- NOTE | 2017-04-23 08:47 | PHYS DOC ---
Past History Past Medical History: Arthritis, Asthma, Constipation, GERD, High Cholesterol, Hypertension Past Surgical History: No Surgical History Alcohol Use: None Drug Use: None Adult General HPI HPI Patient is a 87 year old F who presents with weakness and altered mental status. Patient is a sister who lives in shelter and EMS was called for increased weakness and some altered mental status. Patient had a history of a stroke but no complaints of neuro deficits. The shelter reported some nausea/vomiting/diarrhea earlier today. In emergency room patient has no complaints except that her mouth is dry. Review of Systems Review of Systems GEN: Denies fevers, chills, sweats HEENT: Dry mouth CV: Denies chest pain RESP: Denies shortness of air, cough GI: n/v/d NEURO: Denies confusion, dizziness MSK: Denies weakness, joint pain/swelling Allergies Allergies Allergies Coded Allergies Type Severity Reaction Last Updated Verified Penicillins Allergy Intermediate 03/10/17 Yes Sulfa (Sulfonamide Antibiotics) Allergy Intermediate 03/10/17 Yes amoxicillin Allergy Intermediate 03/10/17 Yes aspirin Allergy Intermediate 03/10/17 Yes chocolate flavor Allergy Intermediate 03/10/17 Yes clavulanic acid Allergy Intermediate 03/10/17 Yes mushroom Allergy Intermediate 03/10/17 Yes strawberry Allergy Intermediate 03/10/17 Yes Uncoded Allergies Type Severity Reaction Last Updated Verified other Allergy Unknown 03/09/17 Physical Exam Physical Exam GEN.: No apparent distress. Alert and oriented x 2 HEENT: Head is normocephalic, atraumatic, dry mucous membranes NECK: Supple. LUNGS: CTAB. HEART: Tachycardia, S1, S2 present. Peripheral pulses intact ABDOMEN: Soft, nontender. Positive bowel sounds. EXTREMITIES: Without any cyanosis. NEUROLOGIC: Dysarthria PSYCHIATRIC: Confused SKIN: No ulcerations Current Patient Data Vital Signs Laboratory Tests Test 04/23/17 08:45 04/23/17 09:05 04/23/17 09:30 Sodium Level 138 mmol/L Potassium Level 3.3 mmol/L Chloride Level 103 mmol/L Carbon Dioxide Level 20 mmol/L Anion Gap 15 Blood Urea Nitrogen 41 mg/dL Creatinine 2.3 mg/dL Estimated GFR (Cockcroft-Gault) 20.2 BUN/Creatinine Ratio 18 Glucose Level 70 mg/dL Calcium Level 9.3 mg/dL Total Bilirubin 0.5 mg/dL Aspartate Amino Transf (AST/SGOT) 49 U/L Alanine Aminotransferase (ALT/SGPT) 22 U/L Alkaline Phosphatase 64 U/L Troponin I Quantitative 0.212 ng/mL Total Protein 6.1 g/dL Albumin 3.2 g/dL Albumin/Globulin Ratio 1.1 Lipase 102 U/L White Blood Count 10.9 x10^3/uL Red Blood Count 3.30 x10^6/uL Hemoglobin 10.8 g/dL Hematocrit 32.2 % Mean Corpuscular Volume 98 fL Mean Corpuscular Hemoglobin 33 pg Mean Corpuscular Hemoglobin Concent 34 g/dL Red Cell Distribution Width 19.2 % Platelet Count 163 x10^3/uL Neutrophils (%) (Auto) 97 % Lymphocytes (%) (Auto) 2 % Monocytes (%) (Auto) 1 % Eosinophils (%) (Auto) 0 % Basophils (%) (Auto) 0 % Neutrophils # (Auto) 10.6 x10^3uL Lymphocytes # (Auto) 0.2 x10^3/uL Monocytes # (Auto) 0.1 x10^3/uL Eosinophils # (Auto) 0.0 x10^3/uL Basophils # (Auto) 0.0 x10^3/uL Lactic Acid Level 3.8 mmol/L Urine Collection Type U cath Urine Color Yellow Urine Clarity Hazy Urine pH 6.0 Urine Specific [place] 1.010 Urine Protein 30 mg/dl Urine Glucose (UA) Neg mg/dL Urine Ketones (Stick) Neg mg/dL Urine Blood Trace Urine Nitrite Neg Urine Bilirubin Neg Urine Urobilinogen Dipstick 0.2 mg/dL Urine Leukocyte Esterase Mod Urine RBC Rare /HPF Urine WBC >40 /HPF Urine Squamous Epithelial Cells None /LPF Urine Bacteria Many /HPF Urine Hyaline Casts Few /HPF Urine Mucus Slight /LPF Current Medications Medications (Trade) Dose Ordered Sig/Santo Route PRN Reason Start Time Stop Time Status Last Admin Dose Admin Sodium Chloride 1,000 ml @ 1,000 mls/hr 1X ONCE IV 04/23/17 08:45 04/23/17 09:44 DC 04/23/17 08:45 Ondansetron HCl (Zofran) 4 mg 1X ONCE IV 04/23/17 09:00 04/23/17 09:05 DC 04/23/17 09:00 Acetaminophen (Tylenol) 1,000 mg 1X ONCE PO 04/23/17 09:00 9/24/17 09:05 DC 04/23/17 09:05 Iohexol (Omnipaque 300 Mg/ml) 75 ml 1X ONCE IV 04/23/17 09:00 04/23/17 09:05 DC Info (Do NOT chart on this entry -- for MONITORING) 1 each PRN DAILY PRN MC SEE COMMENTS 04/23/17 09:00 04/25/17 08:59 Vancomycin HCl (Vanco Per Pharmacy) 1 each PRN DAILY PRN MC SEE COMMENTS 04/23/17 09:45 Levofloxacin/ Dextrose 150 ml @ 150 mls/hr 1X ONCE IV 04/23/17 10:00 04/23/17 10:59 DC 04/23/17 10:28 Sodium Chloride 1,000 ml @ 1,000 mls/hr 1X ONCE IV 04/23/17 10:45 04/23/17 11:44 DC 04/23/17 10:38 Sodium Chloride 1,000 ml @ 1,000 mls/hr 1X ONCE IV 04/23/17 10:45 04/23/17 11:44 DC Vancomycin HCl 1.25 gm/Sodium Chloride 250 ml @ 166.667 mls/hr 1X ONCE IV 04/23/17 11:30 04/23/17 12:59 Norepinephrine Bitartrate 8 mg/ Sodium Chloride 258 ml @ 0 mls/hr CONT PRN IV SEE I/O RECORD 04/23/17 11:30 04/23/17 11:46 Norepinephrine Bitartrate (Levophed) 4 mg STK-MED ONCE IV 04/23/17 11:39 04/23/17 11:40 DC EKG EKG 0856: EKG shows normal sinus rhythm rate of 97 no STEMI[] Radiology/Procedures Radiology/Procedures CT scan of the head NAD CT scan abdomen and pelvis without contrast: Impression: Two distal left ureteral calculi are seen at the left UVJ. These measure 2.5 and 4 mm in size. They are causing mild obstruction of the left collecting system.[] Course & Med Decision Making Course & Med Decision Making Pertinent Labs and Imaging studies reviewed. (See chart for details) ED course: Patient was seen and examined emergency room septic workup was ordered 1043: Discussed CC/HP/PMH with Dr. Talley and recommends transfer for needed urology 1100: Called the sisters who wanted the patient transferred to 1107: transfer center contacted case discussed 1115: Discussed CC/HP/PMH with and Dr. Martinez accepts and recommends admit to MICU[] 1123: Patient's systolic blood pressure is 63 therefore leave the drip will be started with a target map of 60, patient has received 2 L of normal saline already, patient is a DNR MDM: After reviewing the chart, CC/HPI/PMH, physical exam, [lab results], [ radiological results], patient has a septic stone with acute renal failure and lactic acidosis. Patient be transferred to for definitive treatment and urology consult. Patient was started on antibiotics and a liter for drip secondary to lowering blood pressures. Target map of 60. Patient is a DNR. Critical care time was 35 minutes exclusive of procedures. [] Dragon Disclaimer Dragon Disclaimer This chart was dictated in whole or in part using Voice Recognition software in a busy, high-work load, and often noisy Emergency Department environment. It may contain unintended and wholly unrecognized errors or omissions. Departure Departure: Impression: Primary Impression: Lactic acidosis Additional Impressions: UTI (urinary tract infection) Sepsis Ureteral calculus Disposition: 02 XFER SHT-TRM HOSP (Dr. Martinez at accepts) Condition: GUARDED (ERASED) Referrals: CYNTHIA POND MD (PCP) Problem Qualifiers SUKI WASSERMAN DO Apr 23, 2017 08:47
[2017-04-23] MEDS ORDERED: IOHEXOL 300 MG/ML 75 ML VIAL. IV ONE (09:00)
[2017-04-23] MEDS: ONDANSETRON PF 4 MG/2 ML VIAL. IV ONE (09:00)
[2017-04-23] MEDS ORDERED: CONTRAST GIVEN MC PRN (09:00)
[2017-04-23] MEDS: ACETAMINOPHEN 500 MG TABLET PO ONE (09:05)
[2017-04-23 09:18] LABS: ALBUMIN 3.2 g/dL (3.4-5.0); ALBUMIN/GLOBULIN RATIO 1.1 (1.0-1.7); CALCIUM 9.3 mg/dL (8.5-10.1); CREATININE 2.3 mg/dL (0.6-1.0); GFR 20.2; POTASSIUM 3.3 mmol/L (3.5-5.1); TOTAL BILIRUBIN 0.5 mg/dL (0.2-1.0); TOTAL PROTEIN 6.1 g/dL (6.4-8.2)
[2017-04-23] MEDS ORDERED: VANCOMYCIN PER PHARMACY MC PRN (09:45)
[2017-04-23 10:07] LABS: BACTERIA,URINE MANY /HPF (0-FEW); BILIRUBIN,URINE NEG (NEG); CLARITY,URINE HAZY; COLOR,URINE YELLOW; GLUCOSE,URINE NEG (NEG); HYALINE CASTS, URINE FEW /HPF; NITRITE,URINE NEG (NEG); RBC,URINE RARE /HPF (0-2); UROBILINOGEN,URINE 0.2 mg/dL (0.2 mg/dL); WBC,URINE >40 /HPF (0-4)
--- NOTE | 2017-04-23 10:15 | RAD ---
CT scan of the head without contrast 04/23/2017 Clinical History: Mental status changes.. Technique: Unenhanced, contiguous, 5 mm axial sections were obtained through the head. One or more of the following individualized dose reduction techniques were utilized for this study: 1. Automated exposure control. 2. Adjustment of the mA and/or kV according to patient size. 3. Use of iterative reconstruction technique. Findings: No previous studies are available for comparison. There is generalized parenchymal atrophy. Small scattered areas of decreased attenuation are seen within the periventricular and subcortical white matter of both cerebral hemispheres consistent with areas of small vessel ischemic disease. No acute parenchymal abnormality is seen. No extra-axial fluid collection is noted. Impression: No acute intracranial abnormality is seen.
--- NOTE | 2017-04-23 10:34 | RAD ---
CT scan of the abdomen and pelvis without contrast 04/23/2017 Clinical history: Abdominal pain with fever. Technique: Unenhanced, contiguous, 3 mm axial sections were obtained through the abdomen and pelvis. One or more of the following individualized dose reduction techniques were utilized for this study: 1. Automated exposure control. 2. Adjustment of the mA and/or kV according to patient size. 3. Use of iterative reconstruction technique. Findings: Comparison study is dated 03/10/2017. Images through the lung bases demonstrate mild cardiomegaly. Patchy areas of subsegmental atelectasis are seen involving both lower lobes. A 2 mm calcified granuloma is seen involving the lingula. The liver, spleen, pancreas and adrenal glands are within normal limits. A 1.2 cm rounded low-attenuation lesion is seen involving the superior pole of the right kidney. This likely represents a cyst. It is unchanged. A 1.4 cm rounded low-attenuation lesion is seen involving the superior pole the left kidney. This likely represents a cyst. It is unchanged. Two 2 to 3 mm in size nonobstructing calculi are seen involving the lower pole left kidney. A 1.1 cm rounded area of increased attenuation is seen in the lower pole of the left kidney. This likely represents a hemorrhagic cyst. Mild dilatation of the left intrarenal collecting system is seen. The left ureter is mildly dilated throughout its course. Within the distal left ureter at the level of the left UVJ two distal left ureteral calculi are seen. These measure 2.5 and 4 mm in size. They are causing mild obstruction of the left collecting system. Mild to moderate scattered atherosclerotic plaque formation is seen involving the abdominal aorta. The abdominal aorta tapers normally. The gallbladder is well-distended. No free fluid or free air is seen within the abdomen. There is no evidence of bowel obstruction. The appendix is within normal limits. Images through the pelvis demonstrate the urinary bladder distended with urine. A moderate amount of stool is seen within the rectum. Calcified fibroids are seen involving the uterus, unchanged. The osseous structures are unchanged. Impression: Two distal left ureteral calculi are seen at the left UVJ. These measure 2.5 and 4 mm in size. They are causing mild obstruction of the left collecting system.
[2017-04-23 10:35] LABS: BASO % 0 % (0-3); EOS % 0 % (0-3); HEMATOCRIT 32.2 % (36.0-47.0); HEMOGLOBIN 10.8 g/dL (12.0-15.5); LYMPH # 0.2 x10^3/uL (1.0-4.8); LYMPH % 2 % (24-48); MEAN CORPUSCULAR HEMOGLOBIN 33 pg (25-35); MEAN CORPUSCULAR HGB CONC 34 g/dL (31-37); MEAN CORPUSCULAR VOLUME 98 fL (79-100); MONO # 0.1 x10^3/uL (0.0-1.1); MONO % 1 % (0-9); NEUT # 10.6 x10^3uL (1.8-7.7); NEUT % 97 % (31-73); PLATELET COUNT 163 x10^3/uL (140-400); RED CELL DISTRIBUTION WIDTH 19.2 % (11.5-14.5); WHITE BLOOD COUNT 10.9 x10^3/uL (4.0-11.0)
[2017-04-23] MEDS ORDERED: VANCOMYCIN 1.25 GM in IV NORMAL SALINE 250ML 250 ML IV ONE (11:30)
[2017-04-23] MEDS ORDERED: NOREPINEPHRINE BITARTRATE 4 MG/4 ML VIAL. IV ONE (11:39)
[2017-04-23] MEDS: NOREPINEPHRINE BITARTRATE 8 MG in IV NORMAL SALINE 250ML 250 ML IV PRN (11:46)
[2017-04-23 12:18] VITALS: BP 83/37
[2017-04-23] MEDS ORDERED: IV NORMAL SALINE 1,000ML 1,000 ML IV ONE (12:45)
--- NOTE | 2017-04-23 17:50 | EKG ---
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
== END 2017-04-23 12:29 | disposition short-term general hospital (02) ==
LOC: ER 08:35
DX: A41.9 Sepsis, unspecified organism (principal); N20.1 Calculus of ureter; E87.2 Acidosis; N39.0 Urinary tract infection, site not specified; J45.909 Unspecified asthma, uncomplicated; K21.9 Gastro-esophageal reflux disease without esophagitis; I10 Essential (primary) hypertension; E78.00 Pure hypercholesterolemia, unspecified; M19.90 Unspecified osteoarthritis, unspecified site; Z86.73 Personal history of transient ischemic attack (TIA), and cerebral infarction without residual deficits; Z88.1 Allergy status to other antibiotic agents; Z88.0 Allergy status to penicillin; Z88.2 Allergy status to sulfonamides; Z88.8 Allergy status to other drugs, medicaments and biological substances; Z91.018 Allergy to other foods
CPT/HCPCS: 36415; 51702; 70450; 74176; 80053; 81001; 83605; 83690; 84484; 85025; 87040; 87086; 87186; 87205; 93005; 96361; 96365; 96366; 96368; 96375; J1956; J2405; J7050; 99291-25; J7030

== ENCOUNTER 2017-06-13 09:55 | Emergency (ER) | payer MEDICARE, OTHER ==
[~2017-06-13] VITALS: Ht 154.9 cm; Wt 49.4 kg
[2017-06-13] MEDS ORDERED: ONDANSETRON ODT 4 MG TAB.RAPDIS PO ONE (10:30)
[2017-06-13 10:33] LABS: BASO # 0.2 x10^3/uL (0.0-0.2); BASO % 1 % (0-3); EOS # 0.1 x10^3/uL (0.0-0.7); EOS % 1 % (0-3); HEMATOCRIT 30.2 % (36.0-47.0); HEMOGLOBIN 9.9 g/dL (12.0-15.5); LYMPH # 1.2 x10^3/uL (1.0-4.8); LYMPH % 7 % (24-48); MEAN CORPUSCULAR HEMOGLOBIN 30 pg (25-35); MEAN CORPUSCULAR HGB CONC 33 g/dL (31-37); MEAN CORPUSCULAR VOLUME 90 fL (79-100); MONO # 1.3 x10^3/uL (0.0-1.1); MONO % 7 % (0-9); NEUT # 14.7 x10^3uL (1.8-7.7); NEUT % 84 % (31-73); PLATELET COUNT 398 x10^3/uL (140-400); RED BLOOD COUNT 3.35 x10^6/uL (3.50-5.40); RED CELL DISTRIBUTION WIDTH 20.7 % (11.5-14.5); WHITE BLOOD COUNT 17.4 x10^3/uL (4.0-11.0)
[2017-06-13 10:48] LABS: CALCIUM 8.5 mg/dL (8.5-10.1); CREATININE 0.9 mg/dL (0.6-1.0); GFR 59.5; MAGNESIUM 1.7 mg/dL (1.8-2.4); POTASSIUM 3.5 mmol/L (3.5-5.1)
[2017-06-13 11:35] LABS: % BANDS 3 % (0-9); % BASOS 0 % (0-3); % EOS 0 % (0-5); % LYMPHS 12 % (24-48); % MONOS 7 % (0-10); % SEGS 78 % (35-66)
[2017-06-13 11:36] LABS: ANISOCYTOSIS MOD; HYPOCHROMIA PRESENT; PLATELET CLUMP PRESENT; PLT ESTIMATE ADEQUATE (ADEQUATE); TOXIC GRANULATION PRESENT
--- NOTE | 2017-06-13 11:45 | PHYS DOC ---
Past History Past Medical History: Arthritis, GERD, High Cholesterol, Hypertension, Other Past Surgical History: No Surgical History Alcohol Use: None Drug Use: None Adult General Chief Complaint Chief Complaint: SYNCOPE HPI HPI Patient is a 87 year old F who presents with dizziness and dysuria. She feels that her urinary problems started last night and associated with frequency, urgency and dysuria. This morning she states that she felt dizzy but does not recall passing out or having syncopal episode. At this time she has no symptoms. She has no exacerbating or alleviating factors. She has no others associated symptoms at this time. Review of Systems Review of Systems Constitutional: Denies fever or chills [] Eyes: Denies change in visual acuity, redness, or eye pain [] HENT: Denies nasal congestion or sore throat [] Respiratory: Denies cough or shortness of breath [] Cardiovascular: No additional information not addressed in HPI [] GI: Denies abdominal pain, nausea, vomiting, bloody stools or diarrhea [] : Negative except history of present illness Musculoskeletal: Denies back pain or joint pain [] Integument: Denies rash or skin lesions [] Neurologic: Denies headache, focal weakness or sensory changes [] Endocrine: Denies polyuria or polydipsia [] All other systems were reviewed and found to be within normal limits, except as documented in this note. Family History Family History Noncontributory Current Medications Current Medications Current Medications Medications (Trade) Dose Ordered Sig/Santo Start Time Stop Time Status Last Admin Dose Admin Ondansetron HCl (Zofran Odt) 4 mg 1X ONCE 06/13/17 10:30 06/13/17 10:31 DC 06/13/17 10:15 4 MG Allergies Allergies Allergies Coded Allergies Type Severity Reaction Last Updated Verified Penicillins Allergy Intermediate 03/10/17 Yes Sulfa (Sulfonamide Antibiotics) Allergy Intermediate 03/10/17 Yes amoxicillin Allergy Intermediate 03/10/17 Yes aspirin Allergy Intermediate 03/10/17 Yes chocolate flavor Allergy Intermediate 03/10/17 Yes clavulanic acid Allergy Intermediate 03/10/17 Yes mushroom Allergy Intermediate 03/10/17 Yes strawberry Allergy Intermediate 03/10/17 Yes Uncoded Allergies Type Severity Reaction Last Updated Verified other Allergy Unknown 03/09/17 Physical Exam Physical Exam Constitutional: Well developed, well nourished, no acute distress, non-toxic appearance. [] HENT: Normocephalic, atraumatic, bilateral external ears normal, oropharynx moist, no oral exudates, nose normal. [] Eyes: EOMI, conjunctiva normal, no discharge. [] Neck: Normal range of motion, no tenderness, supple, no stridor. [] Cardiovascular:Heart rate regular rhythm, no murmur [] Lungs & Thorax: Bilateral breath sounds clear to auscultation [] Abdomen: Bowel sounds normal, soft, no masses, no pulsatile masses. [] Mild suprapubic tenderness Skin: Warm, dry, no erythema, no rash. [] Back: No tenderness, no CVA tenderness. [] Extremities: No tenderness, no cyanosis, no clubbing, ROM intact, no edema. [] Neurologic: Alert and oriented X 3, normal motor function, normal sensory function, no focal deficits noted. [] Psychologic: Affect normal, judgement normal, mood normal. [] Current Patient Data Vital Signs Normal vital signs. Please see nursing recommendation for specifics Lab Results Laboratory Tests Test 06/13/17 10:23 White Blood Count 17.4 x10^3/uL (4.0-11.0) H Red Blood Count 3.35 x10^6/uL (3.50-5.40) L Hemoglobin 9.9 g/dL (12.0-15.5) L Hematocrit 30.2 % (36.0-47.0) L Mean Corpuscular Volume 90 fL (79-100) Mean Corpuscular Hemoglobin 30 pg (25-35) Mean Corpuscular Hemoglobin Concent 33 g/dL (31-37) Red Cell Distribution Width 20.7 % (11.5-14.5) H Platelet Count 398 x10^3/uL (140-400) # Neutrophils (%) (Auto) 84 % (31-73) H Lymphocytes (%) (Auto) 7 % (24-48) L Monocytes (%) (Auto) 7 % (0-9) Eosinophils (%) (Auto) 1 % (0-3) Basophils (%) (Auto) 1 % (0-3) Neutrophils # (Auto) 14.7 x10^3uL (1.8-7.7) H Lymphocytes # (Auto) 1.2 x10^3/uL (1.0-4.8) Monocytes # (Auto) 1.3 x10^3/uL (0.0-1.1) H Eosinophils # (Auto) 0.1 x10^3/uL (0.0-0.7) Basophils # (Auto) 0.2 x10^3/uL (0.0-0.2) Segmented Neutrophils % 78 % (35-66) H Band Neutrophils % 3 % (0-9) Lymphocytes % 12 % (24-48) L Monocytes % 7 % (0-10) Eosinophils % 0 % (0-5) Basophils % 0 % (0-3) Toxic Granulation Present Platelet Estimate Adequate (ADEQUATE) Platelet Clumps, EDTA Present Large Platelets Few Hypochromasia Present Anisocytosis Mod Sodium Level 134 mmol/L (136-145) L Potassium Level 3.5 mmol/L (3.5-5.1) Chloride Level 100 mmol/L (98-107) Carbon Dioxide Level 22 mmol/L (21-32) Anion Gap 12 (6-14) Blood Urea Nitrogen 15 mg/dL (7-20) Creatinine 0.9 mg/dL (0.6-1.0) Estimated GFR (Cockcroft-Gault) 59.5 Glucose Level 99 mg/dL (70-99) Calcium Level 8.5 mg/dL (8.5-10.1) Magnesium Level 1.7 mg/dL (1.8-2.4) L EKG EKG [] Radiology/Procedures Radiology/Procedures [] Course & Med Decision Making Course & Med Decision Making Pertinent Labs and Imaging studies reviewed. (See chart for details) Robina declined further imaging including chest x-ray and abdominal CT. She she also declined admission for treatment of her urinary tract infection. She was advised that due to her many allergies to antibiotics is possible that oral antibiotics given may not improve her symptoms. She was advised that these oral antibiotics may result in worsening of her medical condition including or permanent disability. She is breast understanding and wished to be discharged home. Dragon Disclaimer Dragon Disclaimer This electronic medical record was generated, in whole or in part, using a voice recognition dictation system. Departure Departure: Impression: Primary Impression: UTI (urinary tract infection) Disposition: 01 HOME, SELF-CARE Condition: STABLE Referrals: CYNTHIA POND MD (PCP) Patient Instructions: Urinary Tract Infection Additional Instructions: Robina was seen in the emergency department for urinary problems and dizziness. No emergency medical condition was found on history or physical exam. She did have normal labs and EKG. She was found have symptoms consistent with a urinary tract infection as well as a urinalysis that showed signs of urinary tract infection. She was given an initial dose of antibiotics by shot. She is also given a prescription for oral antibiotics. She was strongly advised to return the emergency room if she develops new or worsening symptoms particularly shortness of breath. She was also advised follow-up with her primary care doctor in the next 3-5 days for further management. Scripts Cephalexin (KEFLEX) 500 Mg Capsule 1 CAP PO TID for 7 Days, #21 CAP Prov: NIHARIKA VOGT MD 06/13/17 Problem Qualifiers Primary Impression: UTI (urinary tract infection) Urinary tract infection type: acute cystitis Hematuria presence: with hematuria Qualified Codes: N30.01 - Acute cystitis with hematuria NIHARIKA VOGT MD Jun 13, 2017 11:45
--- NOTE | 2017-06-13 12:08 | EKG ---
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
[2017-06-13 12:50] LABS: BACTERIA,URINE MOD /HPF (0-FEW); BILIRUBIN,URINE NEG (NEG); CLARITY,URINE CLOUDY; COLOR,URINE YELLOW; GLUCOSE,URINE NEG (NEG); NITRITE,URINE POS (NEG); UROBILINOGEN,URINE 0.2 mg/dL (0.2 mg/dL); WBC,URINE >40 /HPF (0-4)
[2017-06-13] MEDS ORDERED: CEPH-264 PO (13:19)
[2017-06-13] MEDS ORDERED: cefTRIAXone IM 1 GM VIAL IM ONE (13:30)
[2017-06-13 13:35] VITALS: BP 114/60
== END 2017-06-13 13:35 | disposition home or self-care (01) ==
LOC: ER 09:55
DX: N30.01 Acute cystitis with hematuria (principal); I10 Essential (primary) hypertension; E78.00 Pure hypercholesterolemia, unspecified; K21.9 Gastro-esophageal reflux disease without esophagitis; M19.90 Unspecified osteoarthritis, unspecified site; Z88.0 Allergy status to penicillin; Z88.2 Allergy status to sulfonamides; Z88.1 Allergy status to other antibiotic agents; Z91.018 Allergy to other foods; Z88.6 Allergy status to analgesic agent
CPT/HCPCS: 36415; 51701; 80048; 81001; 83735; 85007; 85025; 93005; 96372; 99285; J0696; Q0162

== ENCOUNTER → 2017-06-23 | Outpatient (CLI) | payer MEDICARE, OTHER ==
[2017-06-13 13:35] VITALS: BP 114/60
[~2017-06-23] MED LIST changes: +CEPH-264 PO
[2017-06-23 23:07] LABS: BILIRUBIN,URINE NEG (NEG); CLARITY,URINE TURBID; COLOR,URINE YELLOW; GLUCOSE,URINE NEG (NEG); NITRITE,URINE POS (NEG); RBC,URINE OCC /HPF (0-2); UROBILINOGEN,URINE 0.2 mg/dL (0.2 mg/dL)
[2017-06-23 23:08] LABS: BACTERIA,URINE MOD /HPF (0-FEW); SQUAMOUS EPITHELIAL CELL,UR MOD /LPF; WBC,URINE TNTC /HPF (0-4)
== END | disposition home or self-care (01) ==
LOC: SPEC 21:15
PROVIDERS: ATTEND Internal Medicine
DX: N39.0 Urinary tract infection, site not specified (principal)
CPT/HCPCS: 81001; 87086

== ENCOUNTER → 2017-09-05 | Outpatient (CLI) | payer MEDICARE, OTHER ==
[2017-09-05 23:41] LABS: BASO # 0.1 x10^3/uL (0.0-0.2); BASO % 2 % (0-3); EOS # 0.3 x10^3/uL (0.0-0.7); EOS % 5 % (0-3); HEMATOCRIT 26.7 % (36.0-47.0); HEMOGLOBIN 9.1 g/dL (12.0-15.5); LYMPH % 19 % (24-48); MEAN CORPUSCULAR HEMOGLOBIN 33 pg (25-35); MEAN CORPUSCULAR HGB CONC 34 g/dL (31-37); MEAN CORPUSCULAR VOLUME 98 fL (79-100); MONO # 0.8 x10^3/uL (0.0-1.1); MONO % 15 % (0-9); NEUT # 3.3 x10^3uL (1.8-7.7); NEUT % 60 % (31-73); PLATELET COUNT 260 x10^3/uL (140-400); RED BLOOD COUNT 2.71 x10^6/uL (3.50-5.40); RED CELL DISTRIBUTION WIDTH 19.2 % (11.5-14.5); WHITE BLOOD COUNT 5.5 x10^3/uL (4.0-11.0)
[2017-09-05 23:42] LABS: CALCIUM 8.5 mg/dL (8.5-10.1); GFR 52.7; POTASSIUM 4.4 mmol/L (3.5-5.1)
== END | disposition home or self-care (01) ==
LOC: LAB 23:12
PROVIDERS: ATTEND Internal Medicine
DX: E78.5 Hyperlipidemia, unspecified (principal); I10 Essential (primary) hypertension; M06.9 Rheumatoid arthritis, unspecified; N32.89 Other specified disorders of bladder; Z79.891 Long term (current) use of opiate analgesic
CPT/HCPCS: 36415; 80048; 82306; 85025

== ENCOUNTER → 2017-09-12 | Outpatient (CLI) | payer MEDICARE, OTHER ==
[2017-09-12 21:49] LABS: BACTERIA,URINE 0 /HPF (0-FEW); BILIRUBIN,URINE NEG (NEG); CLARITY,URINE TURBID; COLOR,URINE STRAW; GLUCOSE,URINE NEG (NEG); NITRITE,URINE NEG (NEG); RBC,URINE OCC /HPF (0-2); SQUAMOUS EPITHELIAL CELL,UR OCC /LPF; UROBILINOGEN,URINE 0.2 mg/dL (0.2 mg/dL); WBC,URINE TNTC /HPF (0-4)
== END | disposition home or self-care (01) ==
LOC: LAB 19:56
PROVIDERS: ATTEND Internal Medicine
DX: N39.0 Urinary tract infection, site not specified (principal)
CPT/HCPCS: 81001; 87086